=== PATIENT | male | born 1990 | race Caucasian/White ===

== ENCOUNTER 2016-06-07 01:44 | Emergency (ER) | payer OTHER ==
[~2016-06-07] VITALS: Ht 177.8 cm; Wt 76.7 kg
[~2016-06-07 01:44] MED LIST: ACET-1256 PO; AMPH30TA2 PO; IBUP-103 PO
[2016-06-07 01:50] VITALS: TEMP 36.7; Ht 177.8 cm; Wt 76.7 kg
[2016-06-07] MEDS ORDERED: AMOX875T PO (02:12)
[2016-06-07] MEDS ORDERED: SULF800T23 PO (02:12)
[2016-06-07] MEDS ORDERED: SEPTRA DS HOME PACK 1 EA VIAL PO ONE (02:15)
[2016-06-07] MEDS ORDERED: NORCO 5/325MG HOME PACK PO ONE (02:15)
[2016-06-07] MEDS ORDERED: AMOXICIL/CLAVU 875MG HOME PACK PO ONE (02:15)
[2016-06-07 02:21] VITALS: BP 124/81; PULSE 94; O2SAT 99
[2016-06-07] MEDS ORDERED: OXYC1TAB3 PO (19:42)
--- NOTE | 2016-06-07 23:21 | EMERGENCY ROOM VISIT NOTE ---
History First contact with patient: 01:58 Chief Complaint: SKIN PROBLEM Stated Complaint: CYST IN GENITAL AREA,THICK AND BUTT ARE History of Present Illness The patient is a 25 year old male who presents to the Emergency Room with complaints of worsening pain and discomfort in his pilonidal region as well as his left groin. The patient has a history of extensive pilonidal abscesses that have required surgical removal and intervention. The patient feeling this is returning. Additionally he has some tenderness of his left groin, and is concerned for other abscess. The patient does not have fever or chills. He rates his discomfort a 9/10. No abdominal pain or changes in bowels or urination. He does not have a history of inflammatory bowel disease. He has not taken anything [id number] for his discomfort. Laying flat on his back worsens his symptoms. Review of Systems More than 10 systems were reviewed and otherwise negative with the exception of history of present illness. Past Medical/Surgical History Medical Problems: (1) Asthma, Unspecified (2) Attn Defic Nonhyperact (3) Juv Osteochondrosis Leg (4) Pilonidal Cyst W Abscess (5) Tobacco Use Disorder Social History Smoking Status: Current Every Day Smoker Alcohol Use: occasionally Drug Use: none Marital Status: single Occupation Status: employed Current/Historical Medications Scheduled Amoxicillin & Pot Clavulanate (Augmentin 875-125 mg), 1 TAB PO BID Amphetamine-Dextroamphetamine 30MG (Adderall 30MG), 15 MG PO UD Sulfa/Trimethoprim (Bactrim Ds 800MG/160MG), 1 TAB PO BID Scheduled PRN Oxycodone Ir (Roxicodone Ir), 1-2 TAB PO Q4H PRN for Pain Allergies Coded Allergies: No Known Allergies (Unverified , NONE, 06/07/16) Physical Exam Vital Signs Date Time Temp Pulse Resp B/P Pulse Ox O2 Delivery O2 Flow Rate FiO2 06/07/16 02:21 94 18 124/81 99 06/07/16 01:50 36.7 101 18 117/77 97 Room Air Pain Rating (0-10): 4.0 Physical Exam VITALS: Vitals are noted on the nurse's note and reviewed by myself. Vital signs stable. GENERAL: Well-developed, well-nourished, white male, who is in no acute distress and resting comfortably. Patient is cooperative with the examination. HEAD: Normocephalic atraumatic. NECK: Supple without nuchal rigidity. No lymphadenopathy. No thyromegaly. Cervical spine is nontender. HEART: Regular rate and rhythm without murmurs gallops or rubs. LUNGS: Clear to auscultation bilaterally without wheezes, rales or rhonchi. No retractions or accessory muscle use. ABDOMEN: Positive normal bowel sounds x 4. Soft, nontender, without masses or organomegaly. No guarding or rebound tenderness. RECTAL: The patient is with surgical incision throughout the pilonidal region of the superior gluteal cleft. There is firmness and tenderness but no obvious abscess appreciated through this region. No significant ulceration or drainage noted throughout. Perirectal area is without significant findings. MUSCULOSKELETAL: No muscle atrophy, erythema, or edema noted. Full range of motion without joint tenderness in all extremities. SKIN: The skin was with induration and firmness in the left groin at the most proximal femur medially. This area measures approximately 4 x 2 cm in dimension. No fluctuance or drainage. Medical Decision & Procedures Medications Administered Medications (Trade) Dose Ordered Sig/Hayde Route Start Time Stop Time Status Last Admin Dose Admin Amoxicillin/ Clavulanate Potassium (Augmentin 875MG Home Pack) 1 homepack UD ONCE PO 06/07/16 02:15 06/07/16 02:16 DC 06/07/16 02:15 1 HOMEPACK Trimethoprim/ Sulfamethoxazole (Sulfameth/ Trimeth Ds 800/ 160MG Home Pack) 1 homepack UD ONCE PO 06/07/16 02:15 06/07/16 02:16 DC 06/07/16 02:15 1 HOMEPACK Acetaminophen/ Hydrocodone Bitart ([place] 5/325mg Home Pack) 1 homepack UD ONCE PO 06/07/16 02:15 06/07/16 02:16 DC 06/07/16 02:15 1 HOMEPACK ED Course Physical exam and history were performed. Nursing notes and EMR were reviewed. Patient appears to have an ongoing history of pilonidal disease. He has some worsening tenderness over the past one to 2 days. Additionally he appears to have a cellulitis in his left groin. The patient does not appear toxic and is afebrile here in the department. I discussed options of care with the patient and will start him on Augmentin and Bactrim. There was no drainage for culture. I will also give the patient home pack of Vicodin. The patient was asked to follow with his surgeon for further care and management. He was otherwise invited back to the ER with any new, worsening, or concerning symptoms. The chart was completed utilizing [employer] Speech Voice Recognition Software. Grammatical errors, random word insertions, pronoun errors, and incomplete sentences are an occasional consequence of this system due to software limitations, ambient noise, and hardware issues. Any formal questions or concerns about the content, text, or information contained within the body of this dictation should be directly addressed to the provider for clarification. . Medical Decision Differential diagnosis: Etiologies such as cellulitis, abscess, MRSA infection, DVT, necrotizing fasciitis, dermatitis, drug eruption, as well as others were entertained.. Impression Primary Impression: Cellulitis Departure Information Dispostion Home / Self-Care Condition GOOD Prescriptions Sulfa/Trimethoprim (Bactrim Ds 800MG/160MG) Tab 1 TAB PO BID for 9 Days, #18 TAB Prov: Drew Blanchard PA-C 06/07/16 Amoxicillin & Pot Clavulanate (Augmentin 875-125 mg) 1 Tab Tab 1 TAB PO BID for 9 Days, #18 TAB Prov: Drew Blanchard PA-C 06/07/16 Forms HOME CARE DOCUMENTATION FORM, IMPORTANT VISIT INFORMATION Patient Instructions My [facility] Additional Instructions You were seen and evaluated today on an emergency basis only. This is not a substitute for, or an effort to provide, complete comprehensive medical care. It is not possible to recognize and treat all injuries or illnesses in a single emergency department visit. For this reason it is recommended that you followup with your surgeon by phone on thursday to arrange for follow-up. Amoxicillin Clavulanate (Augmentin) 875mg: Take one pill twice daily for 10 total days for your infection. All antibiotics can cause diarrhea. If this occurs and you feel worse or it does not resolve in 1-2 days follow up with your doctor or return to the Emergency Department as this could be signs of serious underlying problems. Any medication can cause an allergic reaction, stop the pills immediately and return to the ER for rash, hives, breathing difficulties, or swelling. Trimethoprim-Sulfamethoxazole(Bactrim DS): Take one pill twice daily for 10 total days for your skin infection. All antibiotics can cause diarrhea. If this occurs and you feel worse or it does not resolve in 1-2 days follow up with your doctor or return to the Emergency Department as this could be signs of serious underlying problems. Any medication can cause an allergic reaction, stop the pills immediately and return to the ER for rash, hives, breathing difficulties, or swelling. [place] (hydrocodone/acetaminophen) 5/325 mg (homepack) every 6 hours as needed for worsening breakthrough pain. Do not drink or drive on [place]. This medication will likely make you tired. Do not take [place] and Tylenol at the same time as both contain acetaminophen. [place] may cause constipation. You may wish to take an [id number] stool softener like Colace if this occurs. You are welcome to return to the emergency department anytime with new, worsening, or concerning symptoms.
[2016-07-30] MEDS ORDERED: FLV1 PO (15:45)
[2016-07-30] MEDS ORDERED: NRN600 PO (15:45)
[2016-07-30] MEDS ORDERED: MULT-589 PO (15:45)
[2016-07-30] MEDS ORDERED: THM100 PO (15:45)
== END 2016-06-07 02:22 | disposition home or self-care (01) ==
LOC: C.EDB 01:46
DX: L03.314 Cellulitis of groin (principal); F98.8 Other specified behavioral and emotional disorders with onset usually occurring in childhood and adolescence; J45.909 Unspecified asthma, uncomplicated; F17.200 Nicotine dependence, unspecified, uncomplicated; Z98.890 Other specified postprocedural states; Z79.899 Other long term (current) drug therapy

== ENCOUNTER 2016-06-07 19:20 | Emergency (ER) | payer SELFPAY ==
[~2016-06-07] VITALS: Ht 177.8 cm; Wt 76.3 kg
[~2016-06-07 19:20] MED LIST changes: +AMOX875T PO; +SULF800T23 PO
[2016-06-07 19:24] VITALS: BP 122/82; PULSE 91; TEMP 37; O2SAT 94; Ht 177.8 cm; Wt 76.3 kg
[2016-06-07] MEDS ORDERED: OXYC1TAB3 PO (19:42)
[2016-06-07] MEDS ORDERED: MoRPHine SULFATE 4 MG/ML 1 ML CARP\\VIAL IV STA (19:43)
[2016-06-07] MEDS ORDERED: AMPICILLIN/SULBACTAM SOD INJ 3,000 MG in SODIUM CHLORIDE 0.9% 100ML 100 ML IV ONE (19:45)
--- NOTE | 2016-06-07 20:18 | EMERGENCY ROOM VISIT NOTE ---
History First contact with patient: 19:31 Chief Complaint: OTHER COMPLAINT Stated Complaint: REEVAULUATION History of Present Illness The patient is a 25 year old male who presents to the Emergency Room with complaints of no improvement and a groin infection. The patient reports that he was here last night for evaluation. He was provided home packs and prescriptions for Keflex and Bactrim DS. He also received a home pack for hydrocodone. He has run out of the hydrocodone, and complaining of pain rated a 9 out of 10. He denies any fevers or chills. The patient does report a long history of skin infections and abscesses. Review of Systems 10 system review was performed and was negative except for pertinent positives and negatives as indicated in history of present illness Past Medical/Surgical History Medical Problems: (1) Asthma, Unspecified (2) Attn Defic Nonhyperact (3) Juv Osteochondrosis Leg (4) Pilonidal Cyst W Abscess (5) Tobacco Use Disorder Family History Unremarkable Social History Smoking Status: Current Every Day Smoker Alcohol Use: occasionally Drug Use: none Marital Status: single Occupation Status: employed Current/Historical Medications Scheduled Amoxicillin & Pot Clavulanate (Augmentin 875-125 mg), 1 TAB PO BID Amphetamine-Dextroamphetamine 30MG (Adderall 30MG), 15 MG PO UD Sulfa/Trimethoprim (Bactrim Ds 800MG/160MG), 1 TAB PO BID Scheduled PRN Oxycodone Ir (Roxicodone Ir), 1-2 TAB PO Q4H PRN for Pain Allergies Coded Allergies: No Known Allergies (Unverified , NONE, 06/07/16) Physical Exam Vital Signs Date Time Temp Pulse Resp B/P Pulse Ox O2 Delivery O2 Flow Rate FiO2 06/07/16 19:24 37.0 91 18 122/82 94 Room Air Physical Exam CONSTITUTIONAL: Healthy and well nourished. Alert and oriented X 3 with positive affect. Patient does not appear acutely ill or toxic. HEENT: Normocephalic, atraumatic. Pupils equal, round and reactive. NECK: Full active range of motion without discomfort. RESPIRATORY: Clear to auscultation bilaterally with no wheezing, crackles, rhonchi or stridor. CARDIOVASCULAR: Regular rate and rhythm with no murmurs, rubs or gallops. GASTROINTESTINAL: Bowel sounds present in all quadrants. Abdomen is soft and nontender to palpation. GENITOURINARY: Examination shows notable erythema and thickening along bilateral regions of the lateral mid scrotum. There is no thickening of the scrotal wall. Areas of erythema are notably indurated without any evidence for fluctuance. LYMPHATICS: The patient does have left inguinal adenopathy. MUSCULOSKELETAL: Full range of motion of all joints without discomfort. INTEGUMENTARY: No rash or other significant dermatologic conditions noted. NEUROLOGIC: No focal neurologic deficits noted. Medical Decision & Procedures Medications Administered Medications (Trade) Dose Ordered Sig/Hayde Route Start Time Stop Time Status Last Admin Dose Admin Ampicillin Sodium/ Sulbactam Sodium/ Sodium Chloride (Unasyn Inj/Nss 100ml) 108 ml @ 200 mls/hr ONE ONCE IV 06/07/16 19:45 06/07/16 20:17 DC 06/07/16 20:05 200 MLS/HR Morphine Sulfate (MoRPHine SULFATE INJ) 4 mg NOW STAT IV 06/07/16 19:43 06/07/16 19:45 DC 06/07/16 19:50 4 MG Procedure IV medications: The patient received morphine 4 mg IVP and Unasyn 3 g IV infusion ED Course Patient history and physical exam were performed. Nurse's notes were reviewed. Vital signs were reviewed and were normal without any tachycardia or fever. The patient's prior ED visit notes were not completed on review. Reports that I &D was not attempted. Based on physical exam today, I am in agreement that I&D would not be productive since the tissue is only indurated without obvious evidence for abscess. I did suggest some IV antibiotics, and the patient was in agreement. IV access was established. The patient received Unasyn 3 g IV infusion, along with morphine 4 mg IVP. The patient was provided a prescription for OxyIR 5 mg, dispensed #24 with no refills. No drinking or driving while taking this medication. He was instructed to continue and complete all antibiotics as per sleep prescribed. I did suggest that he follow-up with his PCP in the next 48 hours for recheck, returning to the emergency department if he is unable to establish this appointment, or if he has progressively worsening pain, swelling or developing fever. The patient voiced understanding of all discharge instructions, and rated his discomfort a 3 out of 10 at the time of discharge. Medical Decision Impression Primary Impression: Cellulitis of groin Departure Information Dispostion Home / Self-Care Prescriptions Oxycodone Ir (Roxicodone Ir) 5 Mg Tab 1-2 TAB PO Q4H Y for Pain, #24 TAB For Initial Treatment Prov: Varun Burleson PA 06/07/16 Forms HOME CARE DOCUMENTATION FORM, IMPORTANT VISIT INFORMATION Patient Instructions My [facility] Additional Instructions Continuing complete your Keflex and Bactrim DS antibiotics as prescribed. Intermittently apply warm moist compresses to the area. Ibuprofen 800 mg and/or Tylenol 1000 mg every 8 hours. You may also alternate these medications for more effective pain relief: Ibuprofen --4 HRS--> Tylenol --4 HRS--> ibuprofen --4 HRS--> Tylenol .... OxyIR if needed for worse pain. Do not drink or drive while taking OxyIR. Return to the emergency department for recheck in 48 hours if there is no improvement in your infection. Return for significantly worsening swelling or developing fever.
[2016-06-07] MEDS ORDERED: CEPHALEXIN 500MG HOME PACK 1 EA BTL PO ONE (20:30)
[2016-06-07] MEDS ORDERED: SEPTRA DS HOME PACK 1 EA VIAL PO ONE (20:30)
[2016-06-07] MEDS ORDERED: OXYCODONE IR HOME PACK PO ONE (20:30)
[2016-07-30] MEDS ORDERED: MULT-589 PO (15:45)
[2016-07-30] MEDS ORDERED: THM100 PO (15:45)
[2016-07-30] MEDS ORDERED: NRN600 PO (15:45)
[2016-07-30] MEDS ORDERED: FLV1 PO (15:45)
== END 2016-06-07 20:52 | disposition home or self-care (01) ==
LOC: C.EDB 19:22 → C.EDD 20:52
DX: L03.314 Cellulitis of groin (principal); J45.909 Unspecified asthma, uncomplicated; F98.8 Other specified behavioral and emotional disorders with onset usually occurring in childhood and adolescence; F17.200 Nicotine dependence, unspecified, uncomplicated; Z79.899 Other long term (current) drug therapy

== ENCOUNTER 2016-07-27 16:40 | Emergency (ER) | payer OTHER ==
[~2016-07-27] VITALS: Ht 177.8 cm; Wt 72.9 kg
[~2016-07-27 16:40] MED LIST changes: -ACET-1256 PO; -AMOX875T PO; -IBUP-103 PO; +OXYC1TAB3 PO; -SULF800T23 PO
[2016-07-27 16:44] VITALS: TEMP 36.6; Ht 177.8 cm; Wt 72.9 kg
[2016-07-27] MEDS ORDERED: LORAZEPAM 2 MG/ML 1 ML VIAL IV STA (16:59)
[2016-07-27] MEDS ORDERED: SODIUM CHLORIDE 0.9% 1000ML 1,000 ML IV STA (16:59)
[2016-07-27] MEDS ORDERED: ONDANSETRON INJ 2 MG/ML 2 ML VIAL IV STA (17:07)
[2016-07-27] MEDS ORDERED: VNTHFA/IN IN (17:18)
[2016-07-27 17:25] LABS: BASO % 0.6 %; BASO ABS # 0.06 K/uL (0-0.2); COMPLETE YES; EOS % 0.1 %; IG% 0.1 %; LYMPH % 15.2 %; LYMPH ABS # 1.42 K/uL (1.2-3.4); MEAN CELL VOLUME 95.6 fL (80-100); MEAN CORPUSCULAR HEMOGLOBIN 34.7 pg (25-34); MEAN CORPUSCULAR HGB CONC 36.3 g/dl (32-36); MEAN PLATELET VOLUME 9.4 fL (7.4-10.4); MONO % 8.9 %; NEUT % 75.1 %; PLATELET COUNT 252 K/uL (130-400); RED BLOOD COUNT 4.81 M/uL (4.7-6.1); WHITE BLOOD COUNT 9.36 K/uL (4.8-10.8)
--- NOTE | 2016-07-27 17:29 | EMERGENCY ROOM VISIT NOTE ---
History Report prepared by Ana: Nathalie Cardoso Under the Supervision of: Dr. Eloisa Green D.O. First contact with patient: 16:47 Chief Complaint: VOMITING Stated Complaint: VOMITING,DIZZY,ETC History of Present Illness The patient is a 25 year old male who presents to the Emergency Room with complaints of worsening nausea since yesterday. He also had decreased appetite yesterday. This morning around 11pm (5.5 hours PRESSER FIRST) the patient developed vomiting. This has worsened throughout the day and he has been unable to keep anything down. He is shaking and feels dizzy. He notes some epigastric soreness that he thinks is due to dry heaving. The patient denies any other abdominal pain or any pain radiating into his back. He also denies any hematemesis. He notes that he typically drinks 4-5 alcoholic beverages every day. He has been drinking regularly for a couple of years. He does not typically feel shaky in the mornings when he wakes up. The patient is trying to quit drinking and states that he tried to drink 3 shots today but vomited them up. He has tried to get sober in the past. He notes occasional marijuana use, but denies any other drugs or substances. No recent trauma, no travel, no new meds. Takes ADHD med. No known sick contact, no new foods. Source of History: patient Onset: yesterday Position: abdomen Quality: other (nausea) Timing: worsening Modifying Factors (Worsening): drinking Associated Symptoms: + abdominal pain, + vomiting Note: Pt feels shaky and dizzy. Pt denies hematemesis. Review of Systems See HPI for pertinent positives & negatives. A total of 10 systems reviewed and were otherwise negative. Past Medical & Surgical Medical Problems: (1) Asthma, Unspecified (2) Attn Defic Nonhyperact (3) Juv Osteochondrosis Leg (4) Pilonidal Cyst W Abscess (5) Tobacco Use Disorder Family History No pertinent history stated. Social History Smoking Status: Current Every Day Smoker Alcohol Use: heavy Drug Use: marijuana Marital Status: single Occupation Status: employed Current/Historical Medications Scheduled PRN Albuterol Hfa (Ventolin Hfa), 2 PUFF IN QID PRN for SOB/Wheezing Amphetamine-Dextroamphetamine 30MG (Adderall 30MG), 15 MG PO UD PRN for Diazepam (Valium), 5 MG PO Q6H PRN for alcohol withdrawal Allergies Coded Allergies: No Known Allergies (Unverified , NONE, 06/07/16) Physical Exam Vital Signs Date Time Temp Pulse Resp B/P Pulse Ox O2 Delivery O2 Flow Rate FiO2 07/27/16 20:45 95 18 142/87 07/27/16 17:41 96 20 136/84 96 07/27/16 16:44 36.6 122 20 145/89 96 Room Air Physical Exam GENERAL: alert, pale appearing, tremulous, well nourished, no distress, non- toxic EYE EXAM: normal conjunctiva, PERRL and EOM's grossly intact OROPHARYNX: no exudate, no erythema, lips, buccal mucosa, and tongue normal and mucous membranes are dry NECK: supple, no nuchal rigidity, no adenopathy, non-tender LUNGS: Clear to auscultation. Normal chest wall mechanics HEART: no murmurs, S1 normal and S2 normal ABDOMEN: abdomen soft, non-tender, normo-active bowel sounds, no masses, no rebound or guarding. BACK: Back is symmetrical on inspection and there is no deformity, no midline tenderness, no CVA tenderness. SKIN: Diaphoretic, no rashes and no bruising UPPER EXTREMITIES: upper extremities are grossly normal. LOWER EXTREMITIES: No pitting edema. NEURO EXAM: Normal sensorium, cranial nerves II-XII grossly intact, normal speech, no gross weakness of arms, no gross weakness of legs. Medical Decision & Procedures ER Provider Diagnostic Interpretation: Radiology results have been interpreted by the radiologist and reviewed by me. CHEST AND ABDOMEN 2 VIEWS HISTORY: epigastric pain, vomiting COMPARISON: FINDINGS: The lungs are clear. The cardiomediastinal silhouette is within normal limits. There is no pneumoperitoneum or pneumatosis. The bowel gas pattern is unremarkable. No evidence for bowel obstruction. No renal or ureteral calculi. Calcifications in the deep pelvis favor phleboliths. Right upper quadrant calcification is likely associated with the adrenal gland. IMPRESSION: No acute cardiopulmonary process. No evidence for bowel obstruction. Electronically signed by: Patrick Goodson M.D. 07/27/2016 6:07 PM Dictated Date/Time: 07/27/2016 6:05 PM Laboratory Results 07/27/16 17:14 Red Blood Count 4.81, Mean Corpuscular Volume 95.6, Mean Corpuscular Hemoglobin 34.7, Mean Corpuscular Hemoglobin Concent 36.3, Mean Platelet Volume 9.4, Neutrophils (%) (Auto) 75.1, Lymphocytes (%) (Auto) 15.2, Monocytes (%) (Auto) 8.9, Eosinophils (%) (Auto) 0.1, Basophils (%) (Auto) 0.6, Neutrophils # (Auto) 7.03, Lymphocytes # (Auto) 1.42, Monocytes # (Auto) 0.83, Eosinophils # (Auto) 0.01, Basophils # (Auto) 0.06 07/27/16 17:14 Test 07/27/16 17:14 07/27/16 17:20 White Blood Count 9.36 K/uL (4.8-10.8) Red Blood Count 4.81 M/uL (4.7-6.1) Hemoglobin 16.7 g/dL (14.0-18.0) Hematocrit 46.0 % (42-52) Mean Corpuscular Volume 95.6 fL (80-100) Mean Corpuscular Hemoglobin 34.7 pg (25-34) Mean Corpuscular Hemoglobin Concent 36.3 g/dl (32-36) Platelet Count 252 K/uL (130-400) Mean Platelet Volume 9.4 fL (7.4-10.4) Neutrophils (%) (Auto) 75.1 % Lymphocytes (%) (Auto) 15.2 % Monocytes (%) (Auto) 8.9 % Eosinophils (%) (Auto) 0.1 % Basophils (%) (Auto) 0.6 % Neutrophils # (Auto) 7.03 K/uL (1.4-6.5) Lymphocytes # (Auto) 1.42 K/uL (1.2-3.4) Monocytes # (Auto) 0.83 K/uL (0.11-0.59) Eosinophils # (Auto) 0.01 K/uL (0-0.5) Basophils # (Auto) 0.06 K/uL (0-0.2) RDW Standard Deviation 49.6 fL (36.4-46.3) RDW Coefficient of Variation 14.0 % (11.5-14.5) Immature Granulocyte % (Auto) 0.1 % Immature Granulocyte # (Auto) 0.01 K/uL (0.00-0.02) Anion Gap 19.0 mmol/L (3-11) Est Creatinine Clear Calc Drug Dose 107.7 ml/min Estimated GFR () 109.1 Estimated GFR (Non- 94.1 BUN/Creatinine Ratio 16.2 (10-20) Calcium Level 8.4 mg/dl (8.5-10.1) Magnesium Level 1.8 mg/dl (1.8-2.4) Total Bilirubin 0.8 mg/dl (0.2-1) Aspartate Amino Transf (AST/SGOT) 241 U/L (15-37) Alanine Aminotransferase (ALT/SGPT) 74 U/L (12-78) Alkaline Phosphatase 112 U/L (45-117) Total Protein 7.6 gm/dl (6.4-8.2) Albumin 4.2 gm/dl (3.4-5.0) Globulin 3.4 gm/dl (2.5-4.0) Albumin/Globulin Ratio 1.2 (0.9-2) Lipase 135 U/L (73-393) Ethyl Alcohol mg/dL 45.0 mg/dl (0-3) Urine Opiates Screen NEG (NEG) Urine Methadone, Qualitative NEG (NEG) Urine Barbiturates NEG (NEG) Urine Phencyclidine (PCP) Level NEG (NEG) Ur Amphetamine/Methamphetamine POS (NEG) MDMA (Ecstasy) Screen NEG (NEG) Urine Benzodiazepines Screen NEG (NEG) Urine Cocaine Metabolite NEG (NEG) Urine Marijuana (THC) POS (NEG) Laboratory results per my review. Medications Administered Medications (Trade) Dose Ordered Sig/Hayde Route Start Time Stop Time Status Last Admin Dose Admin Sodium Chloride (Nss 1000ml) 1,000 ml @ 999 mls/hr Q1H1M STAT IV 07/27/16 16:59 07/27/16 17:59 DC 07/27/16 17:26 999 MLS/HR Lorazepam (Ativan Inj) 1 mg NOW STAT IV 07/27/16 16:59 07/27/16 17:02 DC 07/27/16 17:27 1 MG Ondansetron HCl 4 mg 4 mg NOW STAT IV 07/27/16 17:07 07/27/16 17:09 DC 07/27/16 17:27 4 MG Pantoprazole Sodium/Syringe (Protonix Inj/ Syringe) 10 ml @ 5 mls/min NOW ONCE IV 07/27/16 19:00 07/27/16 19:01 DC 07/27/16 19:22 5 MLS/MIN Thiamine HCl (Vitamin B-1 Tab) 100 mg NOW STAT PO 07/27/16 18:47 07/27/16 18:49 DC 07/27/16 19:02 100 MG Folic Acid (Folvite Tab) 1 mg NOW STAT PO 07/27/16 18:47 07/27/16 18:49 DC 07/27/16 19:01 1 MG Diazepam (Valium Tab) 2.5 mg NOW STAT PO 07/27/16 19:30 07/27/16 19:32 DC 07/27/16 19:48 2.5 MG Diazepam (Valium Tab) 2.5 mg NOW STAT PO 07/27/16 20:48 07/27/16 20:49 DC 07/27/16 20:53 2.5 MG ECG Indication: vomiting Rate (beats per minute): 77 Rhythm: normal sinus Findings: no ectopy, other (Normal axis; Slightly biphasic appearance to T- wave in V2 otherwise no acute ischemia) ED Course 1646: The patient was evaluated in room A4B. A complete history and physical exam was performed. 165: Lorazepam 1 mg IV, NSS 1000 ml @ 999 mls/hr IV 1707: Zofran 4 mg IV 184: I reassessed the patient at this time. He is feeling better and would like to try drinking fluids. 7: Folic Acid 1 mg PO, Thiamine HCl 100 mg PO 0: Pantoprazole Sodium 40 mg IV 1922: I reassessed the patient. He is tolerating PO. He is going to speak with the immigration case worker about alcohol resources. 1929: Diazepam 2.5 mg PO 2018: I reassessed the patient at this time. He is feeling better and resting comfortably. I discussed the results and treatment plan with the patient. I answered all pertaining questions that he had. He expressed understanding and verbalized agreement. The patient will be discharged home. Medical Decision Differential diagnosis: Etiologies such as gastroenteritis, food borne illness, infections, perforation , AAA, dissection, appendicitis, diverticulitis, inflammatory bowel disease, obstruction, GI bleed, biliary pathology, as well as others were entertained. Patient markedly improved here following Ativan and IV fluids. Given otherwise reassuring labs and imaging and improvement with benzodiazepines, more likely patient's symptoms related to alcohol withdrawal. Patient seen by psychiatric immigration case worker and discussed resources for sobriety. Patient is not interested in inpatient alcohol rehabilitation or detox. Discussed with patient need for follow-up with family doctor, symptoms to watch and return for, use of Valium taper to help control symptoms, complications of alcohol abuse and risks associated with alcohol withdrawal, he verbalized understanding of all this was agreeable with plan. No evidence of bacteremia/sepsis, no evidence of delirium tremens, vital signs stable throughout. Doubt foodborne illness, no history to suggest trauma. Doubt occult GI pathology not evident from labs and x-rays at this time. Patient with a steady gait, no tremors or diaphoresis at time of discharge, was tolerating by mouth prior to discharge. Impression Primary Impression: Vomiting Additional Impressions: Alcohol withdrawal Abnormal LFTs (liver function tests) Scribe Attestation The scribe's documentation has been prepared under my direction and personally reviewed by me in its entirety. I confirm that the note above accurately reflects all work, treatment, procedures, and medical decision making performed by me. Departure Information Dispostion Home / Self-Care Prescriptions Diazepam (Valium) 5 Mg Tab 5 MG PO Q6H Y for alcohol withdrawal, #14 TAB Prov: Eloisa Green, 07/27/16 Referrals No Doctor, Assigned (PCP) Forms HOME CARE DOCUMENTATION FORM, IMPORTANT VISIT INFORMATION Patient Instructions My [facility] Additional Instructions You may use the additional medication as provided. Please do not take it and drive. Do not take more than as prescribed. Please stop drinking alcohol. Long-term use of alcohol or heavy use of alcohol, result in health complications , incarceration, and even . Problem Qualifiers Primary Impression: Vomiting Vomiting type: unspecified Vomiting Intractability: non-intractable Nausea presence: with nausea Qualified Codes: R11.2 - Nausea with vomiting, unspecified Additional Impressions: Alcohol withdrawal Complication of substance-induced condition: uncomplicated Qualified Codes: F10.230 - Alcohol dependence with withdrawal, uncomplicated
[2016-07-27 17:41] VITALS: O2SAT 96
[2016-07-27 17:46] LABS: BUN/CREATININE RATIO 16.2 (10-20); CALCIUM 8.4 mg/dl (8.5-10.1); CREATININE 1.1 mg/dl (0.60-1.40); MAGNESIUM 1.8 mg/dl (1.8-2.4); POTASSIUM 3.4 mmol/L (3.5-5.1)
[2016-07-27 17:49] LABS: ALB/GLOB RATIO 1.2 (0.9-2)
[2016-07-27 18:00] LABS: BENZODIAZEPINE, URINE NEG (NEG); COCAINE,URINE NEG (NEG); PHENCYCLIDINE, URINE NEG (NEG)
--- NOTE | 2016-07-27 18:08 | DIAGNOSTIC IMAGING REPORT ---
CHEST AND ABDOMEN 2 VIEWS HISTORY: epigastric pain, vomiting COMPARISON: FINDINGS: The lungs are clear. The cardiomediastinal silhouette is within normal limits. There is no pneumoperitoneum or pneumatosis. The bowel gas pattern is unremarkable. No evidence for bowel obstruction. No renal or ureteral calculi. Calcifications in the deep pelvis favor phleboliths. Right upper quadrant calcification is likely associated with the adrenal gland. IMPRESSION: No acute cardiopulmonary process. No evidence for bowel obstruction. Electronically signed by: Patrick Goodson M.D. 07/27/2016 6:07 PM Dictated Date/Time: 07/27/2016 6:05 PM
[2016-07-27] MEDS ORDERED: THIAMINE HCL 100 MG TAB PO STA (18:47)
[2016-07-27] MEDS ORDERED: PANTOprazole INJ 40 MG in SYRINGE 0 ML IV ONE (19:00)
[2016-07-27] MEDS ORDERED: DIAZEPAM 5MG TAB PO STA ×2 (19:30→20:48)
[2016-07-27] MEDS ORDERED: DIAZ-165 PO (19:45)
[2016-07-27 20:45] VITALS: BP 142/87; PULSE 95
[2016-07-30] MEDS ORDERED: FLV1 PO (15:45)
[2016-07-30] MEDS ORDERED: THM100 PO (15:45)
[2016-07-30] MEDS ORDERED: MULT-589 PO (15:45)
[2016-07-30] MEDS ORDERED: NRN600 PO (15:45)
== END 2016-07-27 20:47 | disposition home or self-care (01) ==
LOC: C.EDB 16:41 → C.EDA 20:47
DX: R11.2 Nausea with vomiting, unspecified (principal); F10.230 Alcohol dependence with withdrawal, uncomplicated; R94.5 Abnormal results of liver function studies; F12.90 Cannabis use, unspecified, uncomplicated; J45.909 Unspecified asthma, uncomplicated; F98.8 Other specified behavioral and emotional disorders with onset usually occurring in childhood and adolescence; F17.200 Nicotine dependence, unspecified, uncomplicated

== ENCOUNTER 2016-07-29 13:38 | Inpatient (IN) | payer OTHER ==
[~2016-07-29] VITALS: Ht 177.8 cm; Wt 76.2 kg
[~2016-07-29 13:38] MED LIST changes: +DIAZ-165 PO; -OXYC1TAB3 PO; +VNTHFA/IN IN
[2016-07-29] MEDS ORDERED: LORAZEPAM 2 MG/ML 1 ML VIAL IV STA (13:46)
[2016-07-29] MEDS ORDERED: SODIUM CHLORIDE 0.9% 1000ML 500 ML IV STA (13:46)
[2016-07-29] MEDS ORDERED: ONDANSETRON INJ 2 MG/ML 2 ML VIAL IV STA (13:46)
--- NOTE | 2016-07-29 13:58 | EMERGENCY ROOM VISIT NOTE ---
History Report prepared by Ana: Nikia Melendez Under the Supervision of: Dr. Asa Kevin M.D. 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 The nursing staff reports that the patient is currently detoxing from alcohol. Earlier today, he fell and hit his head. He had a seizure after falling. He lost consciousness for 10-20 seconds. They report that he had no post ictal phase. He denies any tongue bite or urinary incontinence. He has a history of seizure previously from head trauma. He is currently detoxing on his own. His last drink was 3 days ago. He regularly drank 4-6 drinks a day. He reports feeling jittery. He has tried detoxing before without success. He was seen in the ED 2 days ago for alcohol withdrawal. 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 Pt denies tongue bite, urinary incontinence. Review of Systems See HPI for pertinent positives & negatives. A total of 10 systems reviewed and were otherwise negative. Past Medical & Surgical Medical Problems: (1) Asthma, Unspecified (2) Attn Defic Nonhyperact (3) Juv Osteochondrosis Leg (4) Pilonidal Cyst W Abscess (5) Tobacco Use Disorder Family History No pertinent family history stated. Social History Smoking Status: Current Every Day Smoker Alcohol Use: heavy Drug Use: marijuana Marital Status: single Occupation Status: unemployed Current/Historical Medications Scheduled PRN Albuterol Hfa (Ventolin Hfa), 2 PUFF IN QID PRN for SOB/Wheezing Amphetamine-Dextroamphetamine 30MG (Adderall 30MG), 15 MG PO UD PRN for Diazepam (Valium), 5 MG PO Q6H PRN for alcohol withdrawal Allergies Coded Allergies: No Known Allergies (Unverified , NONE, 07/29/16) Physical Exam Vital Signs Date Time Temp Pulse Resp B/P Pulse Ox O2 Delivery O2 Flow Rate FiO2 07/29/16 14:30 132/89 07/29/16 14:08 97 19 96 07/29/16 14:08 97 18 141/91 98 Room Air 07/29/16 14:00 141/91 07/29/16 13:55 133/86 07/29/16 13:49 37.5 123 18 150/106 98 Room Air 07/29/16 13:45 100 07/29/16 13:44 150/106 Physical Exam GENERAL: Patient is in no acute distress. HEENT: 2-3 cm hematoma to the left temporal scalp with associated abrasion, no lacerations. Mucous membranes slightly dry. No other facial trauma noted. NECK: No stridor, no adenopathy, no meningismus, trachea is midline. LUNGS: Clear to auscultation bilaterally, no wheeze, no rhonchi, breath sounds equal. HEART: Without murmurs gallops or rubs, regular rate and rhythm. ABDOMEN: Soft, nontender, bowel sounds positive, no hernias, no peritonitis. EXTREMITIES: No cyanosis or edema, full range of motion of all the joints without pain or difficulty, no signs for acute trauma. NEUROLOGIC: Oriented x 3, no acute motor or sensory deficits, no focal weakness. GCS 15. SKIN: No rash, no jaundice, no diaphoresis. Medical Decision & Procedures ER Provider Diagnostic Interpretation: X-ray results as stated below per interpretation by me and the radiologist. Radiology results as stated below per my review and radiologist interpretation: CHEST ONE VIEW PORTABLE CLINICAL HISTORY: ALCOHOL OD dyspnea COMPARISON STUDY: 07/27/2016 FINDINGS: The bones soft tissues and hemidiaphragms are normal. The cardiomediastinal silhouette is normal. The lungs are clear. The pulmonary vasculature is normal. IMPRESSION: Negative chest. Electronically signed by: Dominik Locke M.D. 07/29/2016 3:11 PM Dictated Date/Time: 07/29/2016 3:[address] SCAN OF THE BRAIN WITHOUT IV CONTRAST CLINICAL HISTORY: Intoxication. Seizure. Head injury. COMPARISON STUDY: CT of the brain dated 12/01/2008. TECHNIQUE: Unenhanced axial CT scan of the brain is performed from the vertex to the skull base. Automated dose control exposure was utilized. CT DOSE: 537.48 mGy.cm FINDINGS: Brain parenchyma: The brain parenchyma is normal in appearance. There is no hemorrhage, mass effect, or evidence of acute territorial ischemia by CT criteria. Alcantar-white matter is preserved. No extra-axial fluid collection is seen. Ventricles, sulci, cisterns: Normal in configuration. Intracranial vasculature: The visualized intracranial vasculature at the skull base is normal in appearance. Calvarium: No depressed calvarial fracture is seen. Soft tissues: There is a left frontal scalp contusion. Sinuses and mastoids: The visualized paranasal sinuses are clear. The mastoid air cells are well pneumatized. Orbits: The bony orbits are grossly intact. IMPRESSION: 1. No acute intracranial abnormality. 2. Left frontal scalp contusion. Electronically signed by: Asa Wayne M.D. 07/29/2016 3:07 PM Dictated Date/Time: 07/29/2016 3:04 PM Laboratory Results 07/29/16 14:01 Red Blood Count 4.22, Mean Corpuscular Volume 97.6, Mean Corpuscular Hemoglobin 33.9, Mean Corpuscular Hemoglobin Concent 34.7, Mean Platelet Volume 9.6, Neutrophils (%) (Auto) 72.0, Lymphocytes (%) (Auto) 18.5, Monocytes (%) (Auto) 6.8, Eosinophils (%) (Auto) 2.3, Basophils (%) (Auto) 0.2, Neutrophils # (Auto) 3.51, Lymphocytes # (Auto) 0.90, Monocytes # (Auto) 0.33, Eosinophils # (Auto) 0.11, Basophils # (Auto) 0.01 07/29/16 14:01 Test 07/29/16 13:46 07/29/16 14:01 White Blood Count 4.87 K/uL (4.8-10.8) Red Blood Count 4.22 M/uL (4.7-6.1) Hemoglobin 14.3 g/dL (14.0-18.0) Hematocrit 41.2 % (42-52) Mean Corpuscular Volume 97.6 fL (80-100) Mean Corpuscular Hemoglobin 33.9 pg (25-34) Mean Corpuscular Hemoglobin Concent 34.7 g/dl (32-36) Platelet Count 149 K/uL (130-400) Mean Platelet Volume 9.6 fL (7.4-10.4) Neutrophils (%) (Auto) 72.0 % Lymphocytes (%) (Auto) 18.5 % Monocytes (%) (Auto) 6.8 % Eosinophils (%) (Auto) 2.3 % Basophils (%) (Auto) 0.2 % Neutrophils # (Auto) 3.51 K/uL (1.4-6.5) Lymphocytes # (Auto) 0.90 K/uL (1.2-3.4) Monocytes # (Auto) 0.33 K/uL (0.11-0.59) Eosinophils # (Auto) 0.11 K/uL (0-0.5) Basophils # (Auto) 0.01 K/uL (0-0.2) RDW Standard Deviation 49.1 fL (36.4-46.3) RDW Coefficient of Variation 13.7 % (11.5-14.5) Immature Granulocyte % (Auto) 0.2 % Immature Granulocyte # (Auto) 0.01 K/uL (0.00-0.02) Prothrombin Time 10.7 SECONDS (9.0-12.0) Prothromb Time International Ratio 1.0 (0.9-1.1) Activated Partial Thromboplast Time 24.7 SECONDS (21.0-31.0) Partial Thromboplastin Ratio 1.0 Anion Gap 8.0 mmol/L (3-11) Est Creatinine Clear Calc Drug Dose 124.5 ml/min Estimated GFR () 127.0 Estimated GFR (Non- 109.6 BUN/Creatinine Ratio 9.1 (10-20) Calcium Level 8.5 mg/dl (8.5-10.1) Magnesium Level 2.1 mg/dl (1.8-2.4) Total Bilirubin 0.9 mg/dl (0.2-1) Direct Bilirubin 0.3 mg/dl (0-0.2) Aspartate Amino Transf (AST/SGOT) 164 U/L (15-37) Alanine Aminotransferase (ALT/SGPT) 66 U/L (12-78) Alkaline Phosphatase 88 U/L (45-117) Total Protein 7.0 gm/dl (6.4-8.2) Albumin 3.6 gm/dl (3.4-5.0) Thyroid Stimulating Hormone (TSH) 0.939 uIu/ml (0.300-4.500) Ethyl Alcohol mg/dL < 3.0 mg/dl (0-3) Laboratory results reviewed by me. Medications Administered Medications (Trade) Dose Ordered Sig/Hayde Route Start Time Stop Time Status Last Admin Dose Admin Sodium Chloride (Nss 1000ml) 500 ml @ 999 mls/hr Q31M STAT IV 07/29/16 13:46 07/29/16 14:16 DC 07/29/16 14:04 999 MLS/HR Ondansetron HCl (Zofran Inj) 4 mg NOW STAT IV 07/29/16 13:46 07/29/16 13:49 DC 07/29/16 14:02 4 MG Lorazepam 2 mg 2 mg NOW STAT IV 07/29/16 13:46 07/29/16 13:49 DC 07/29/16 14:02 2 MG Multivitamins/ Thiamine HCl/ Folic Acid/Sodium Chloride (Mvi Infusion Inj/Vitamin B-1 Inj/Folvite Inj/ Nss 1000ml) 1,011.2 ml @ 500 mls/ hr Q2H2M ONCE IV 07/29/16 14:00 07/29/16 16:01 DC 07/29/16 14:34 500 MLS/HR ECG Indication: other (seizure) Rate (beats per minute): 94 Rhythm: normal sinus Findings: no acute ischemic change, no ectopy ED Course 1342: The patient was evaluated in room C10. A complete history and physical exam was performed. 1346: Lorazepam 2 mg IV, Zofran Inj 4 mg IV, NSS 500 ml @ 999 mls/hr IV. 1400: Multivitamins 10 ml/Thiamine HCl 100 mg/Folic Acid 1 mg/Sodium Chloride 1011.2 ml @ 500 mls/hr IV. 1525: Upon reexamination the patient is resting comfortably. I discussed results and treatment plan with the patient. He verbalizes agreement and understanding. The patient will be evaluated for further management. 1539: I discussed the patient's case with Dr. Hull, [facility] hospitalist. He will evaluate the patient for further management. Medical Decision Differential diagnosis: drug/alcohol abuse, drug/alcohol withdrawal, seizure, intracranial bleeding, skull fracture, dehydration, electrolyte imbalance. There is no leukocytosis or concerning anemia. No significant electrolyte abnormality, no kidney failure. There was some mild liver enzyme elevations likely consistent with his alcohol abuse. Alcohol level is undetectable. Brain CT shows no acute bleed or mass effect. EKG shows a sinus rhythm, no acute ischemia. Chest x-ray does not show pneumonia, pneumothorax or mediastinal widening. Urine tox and urinalysis are presently pending. There was no coagulopathy. Patient appeared to be in a euthyroid state. Patient received IV saline, IV Ativan and IV Zofran. He was given IV saline with multivitamins, thiamine and folate. Patient has done well. He is more comfortable. He is resting easily. Given the alcohol withdrawal, given the possible seizure-like activity and the head trauma, admission/observation is warranted. I spoke to the patient and to the case picker. The on-call hospitalist was consulted. Consults Time Called: 1531 Consulting Physician: Dr. Hull [facility] hospitalist Returned Call: [phone] I discussed the patient's case with him. He will evaluate the patient for further management. Impression Primary Impression: Alcohol withdrawal Additional Impressions: Seizure Closed head injury Scribe Attestation The scribe's documentation has been prepared under my direction and personally reviewed by me in its entirety. I confirm that the note above accurately reflects all work, treatment, procedures, and medical decision making performed by me. Departure Information Dispostion Being Evaluated By Hospitalist Referrals No Doctor, Assigned (PCP) Patient Instructions My [facility] Problem Qualifiers
[2016-07-29] MEDS ORDERED: MULTI-VITAMIN INFUSION INJ 10 ML, THIAMINE HCL INJ 100 MG, FoLIC ACID INJ 1 MG in SODIU... IV ONE ×2 (14:00→16:15)
[2016-07-29 14:13] LABS: BASO % 0.2 %; BASO ABS # 0.01 K/uL (0-0.2); COMPLETE YES; EOS % 2.3 %; HEMATOCRIT 41.2 % (42-52); IG% 0.2 %; LYMPH % 18.5 %; MEAN CELL VOLUME 97.6 fL (80-100); MEAN CORPUSCULAR HEMOGLOBIN 33.9 pg (25-34); MEAN CORPUSCULAR HGB CONC 34.7 g/dl (32-36); MEAN PLATELET VOLUME 9.6 fL (7.4-10.4); MONO % 6.8 %; PLATELET COUNT 149 K/uL (130-400); RED BLOOD COUNT 4.22 M/uL (4.7-6.1); WHITE BLOOD COUNT 4.87 K/uL (4.8-10.8)
[2016-07-29 14:34] LABS: PROTHROMBIN TIME (PATIENT) 10.7 SECONDS (9.0-12.0)
[2016-07-29 14:59] LABS: BUN/CREATININE RATIO 9.1 (10-20); CALCIUM 8.5 mg/dl (8.5-10.1); CREATININE 0.97 mg/dl (0.60-1.40); MAGNESIUM 2.1 mg/dl (1.8-2.4); POTASSIUM 3.8 mmol/L (3.5-5.1); THYROID STIMULATING HORMONE 0.939 uIu/ml (0.300-4.500)
--- NOTE | 2016-07-29 15:08 | DIAGNOSTIC IMAGING REPORT ---
CT SCAN OF THE BRAIN WITHOUT IV CONTRAST CLINICAL HISTORY: Intoxication. Seizure. Head injury. COMPARISON STUDY: CT of the brain dated 12/01/2008. TECHNIQUE: Unenhanced axial CT scan of the brain is performed from the vertex to the skull base. Automated dose control exposure was utilized. CT DOSE: 537.48 mGy.cm FINDINGS: Brain parenchyma: The brain parenchyma is normal in appearance. There is no hemorrhage, mass effect, or evidence of acute territorial ischemia by CT criteria. Alcantar-white matter is preserved. No extra-axial fluid collection is seen. Ventricles, sulci, cisterns: Normal in configuration. Intracranial vasculature: The visualized intracranial vasculature at the skull base is normal in appearance. Calvarium: No depressed calvarial fracture is seen. Soft tissues: There is a left frontal scalp contusion. Sinuses and mastoids: The visualized paranasal sinuses are clear. The mastoid air cells are well pneumatized. Orbits: The bony orbits are grossly intact. IMPRESSION: 1. No acute intracranial abnormality. 2. Left frontal scalp contusion. Electronically signed by: Asa Wayne M.D. 07/29/2016 3:07 PM Dictated Date/Time: 07/29/2016 3:04 PM
--- NOTE | 2016-07-29 15:12 | DIAGNOSTIC IMAGING REPORT ---
CHEST ONE VIEW PORTABLE CLINICAL HISTORY: ALCOHOL OD dyspnea COMPARISON STUDY: 07/27/2016 FINDINGS: The bones soft tissues and hemidiaphragms are normal. The cardiomediastinal silhouette is normal. The lungs are clear. The pulmonary vasculature is normal. IMPRESSION: Negative chest. Electronically signed by: Dominik Locke M.D. 07/29/2016 3:11 PM Dictated Date/Time: 07/29/2016 3:11 PM
[2016-07-29] MEDS ORDERED: LORAZEPAM 1 MG TAB PO PRN (16:30)
[2016-07-29] MEDS ORDERED: LORAZEPAM INJ 1 MG in SYRINGE 0.5 ML IV PRN (16:30)
[2016-07-29] MEDS ORDERED: GABAPENTIN 600 MG TAB PO SCH (16:30)
[2016-07-29 18:15] VITALS: BP 140/91; PULSE 84; TEMP 36.5; O2SAT 99; Ht 177.8 cm; Wt 76.2 kg
[2016-07-29] MEDS: ACETAMINOPHEN 325 MG TAB PO PRN ×2 (18:17→23:27)
[2016-07-29] MEDS ORDERED: GABAPENTIN 1200MG LOADING DOSE PO SCH (18:30)
[2016-07-29] MEDS ORDERED: NICOTINE 14 MG/24 HR TDSY TD ONE (18:58)
[2016-07-29 19:12] LABS: URINE APPEARANCE CLEAR (CLEAR); URINE BILIRUBIN NEG (NEG); URINE COLOR YELLOW; URINE NITRITE NEG (NEG); UROBILINOGEN NEG (NEG)
[2016-07-29 19:17] LABS: MANUAL MICROSCOPIC REQUIRED? NO; REVIEW REQ? NO
[2016-07-29 19:37] LABS: BENZODIAZEPINE, URINE POS (NEG); COCAINE,URINE NEG (NEG); PHENCYCLIDINE, URINE NEG (NEG)
[2016-07-29 19:41] VITALS: BP 133/80; PULSE 84; TEMP 36.5; O2SAT 99
[2016-07-29 20:05] VITALS: O2SAT 99
--- NOTE | 2016-07-29 21:26 | History and Physical ---
History & Physical Date & Time of Service: July 29, 2016 at ~ 16:00 . Chief Complaint: Alcohol Withdrawal, Seizure Primary Care Physician: No Doctor, Assigned History of Present Illness Source: patient 25 YO male who is not followed by a PCP. No chronic medical problems. He had a seizure in high school associated with a head injury; did not require anticonvulsant therapy. Drinking about 6 alcoholic beverages for the past several years. Decided a few days ago that he should quit. Was seen in ED on 07/27/16 with nausea and tremors. Received thiamine, lorazepam, diazepam. Inpatient rehab discussed in ED, but patient opted to be discharged. Over the last 2 days he has abstained from alcohol. Experiencing worsening tremors and nausea. No hematemesis, melena, hematochezia. Today he had an episode of loss of consciousness with apparent generalized seizure activity witnessed by his mother. Loss of consciousness associated with fall and striking his head. No tongue biting or incontinence. . Past Medical/Surgical History Medical Problems: (1) ADHD (attention deficit hyperactivity disorder) Status: Chronic Surgical Problems: (1) Status post excision pilonidal cyst Status: Chronic . Family History hypertension dyslipidemia . Social History Smoking Status: Current Every Day Smoker Alcohol Use: heavy Drug Use: marijuana Marital Status: single Housing status: lives with family Occupational Status: unemployed Multi-Drug Resistant Organisms History of MDRO: No Allergies Coded Allergies: No Known Allergies (Unverified , NONE, 07/29/16) Home Medications Scheduled PRN Amphetamine-Dextroamphetamine 30MG (Adderall 30MG), 15 MG PO UD PRN for Diazepam (Valium), 5 MG PO Q6H PRN for alcohol withdrawal Review of Systems As noted above. . Physical Exam Vital Signs Date Time Temp Pulse Resp B/P Pulse Ox O2 Delivery O2 Flow Rate FiO2 07/29/16 20:05 99 Room Air 07/29/16 19:41 36.5 84 18 133/80 99 07/29/16 18:15 36.5 84 16 140/91 99 Room Air 07/29/16 17:49 114/76 07/29/16 16:31 78 18 128/99 97 Room Air 07/29/16 16:29 128/99 07/29/16 14:30 132/89 07/29/16 14:08 97 19 96 07/29/16 14:08 97 18 141/91 98 Room Air 07/29/16 14:00 141/91 07/29/16 13:55 133/86 07/29/16 13:49 37.5 123 18 150/106 98 Room Air 07/29/16 13:45 100 07/29/16 13:44 150/106 General Appearance: WD/WN, no apparent distress Head: + pertinent finding (contusion left yazdanism) Eyes: normal inspection, PERRL, EOMI, sclerae normal ENT: hearing grossly normal, pharynx normal Neck: supple, no adenopathy, thyroid normal, no JVD Respiratory/Chest: no respiratory distress, no accessory muscle use, + wheezing (diffuse mild) Cardiovascular: regular rate, rhythm, no edema, no gallop, no JVD, no murmur Abdomen/GI: normal bowel sounds, non tender, soft, no organomegaly Extremities/Musculoskelatal: normal inspection, no calf tenderness Neurologic/Psych: pc support specialist II-XII nml as tested (PERRL, EOMI, no facial palsy, no dysarthria or aphasia), no motor/sensory deficits (motor strength upper and lower extr 5/5), alert, normal mood/affect, normal reflexes (patellar DTR's 2/2) Skin: normal color, warm/dry, no rash Lymphatic: no adenopathy (cervical) Diagnostics Laboratory Results Results Past 24 Hours Test 07/29/16 00:00 07/29/16 14:01 Range/Units Urine Color YELLOW Urine Appearance CLEAR CLEAR Urine pH 8.0 4.5-7.5 Urine Specific [place] 1.010 1.000-1.030 Urine Protein NEG NEG Urine Glucose (UA) NEG NEG Urine Ketones NEG NEG Urine Occult Blood NEG NEG Urine Nitrite NEG NEG Urine Bilirubin NEG NEG Urine Urobilinogen NEG NEG Urine Leukocyte Esterase NEG NEG Urine Opiates Screen NEG NEG Urine Methadone, Qualitative NEG NEG Urine Barbiturates NEG NEG Urine Phencyclidine (PCP) Level NEG NEG Ur Amphetamine/Methamphetamine NEG NEG MDMA (Ecstasy) Screen NEG NEG Urine Benzodiazepines Screen POS NEG Urine Cocaine Metabolite NEG NEG Urine Marijuana (THC) POS NEG White Blood Count 4.87 4.8-10.8 K/uL Red Blood Count 4.22 4.7-6.1 M/uL Hemoglobin 14.3 14.0-18.0 g/dL Hematocrit 41.2 42-52 % Mean Corpuscular Volume 97.6 80-100 fL Mean Corpuscular Hemoglobin 33.9 25-34 pg Mean Corpuscular Hemoglobin Concent 34.7 32-36 g/dl Platelet Count 149 130-400 K/uL Mean Platelet Volume 9.6 7.4-10.4 fL Neutrophils (%) (Auto) 72.0 % Lymphocytes (%) (Auto) 18.5 % Monocytes (%) (Auto) 6.8 % Eosinophils (%) (Auto) 2.3 % Basophils (%) (Auto) 0.2 % Neutrophils # (Auto) 3.51 1.4-6.5 K/uL Lymphocytes # (Auto) 0.90 1.2-3.4 K/uL Monocytes # (Auto) 0.33 0.11-0.59 K/uL Eosinophils # (Auto) 0.11 0-0.5 K/uL Basophils # (Auto) 0.01 0-0.2 K/uL RDW Standard Deviation 49.1 36.4-46.3 fL RDW Coefficient of Variation 13.7 11.5-14.5 % Immature Granulocyte % (Auto) 0.2 % Immature Granulocyte # (Auto) 0.01 0.00-0.02 K/uL Prothrombin Time 10.7 9.0-12.0 SECONDS Prothromb Time International Ratio 1.0 0.9-1.1 Activated Partial Thromboplast Time 24.7 21.0-31.0 SECONDS Partial Thromboplastin Ratio 1.0 Sodium Level 140 136-145 mmol/L Potassium Level 3.8 3.5-5.1 mmol/L Chloride Level 105 98-107 mmol/L Carbon Dioxide Level 27 21-32 mmol/L Anion Gap 8.0 3-11 mmol/L Blood Urea Nitrogen 9 7-18 mg/dl Creatinine 0.97 0.60-1.40 mg/dl Est Creatinine Clear Calc Drug Dose 124.5 ml/min Estimated GFR () 127.0 Estimated GFR (Non- 109.6 BUN/Creatinine Ratio 9.1 10-20 Random Glucose 135 70-99 mg/dl Calcium Level 8.5 8.5-10.1 mg/dl Magnesium Level 2.1 1.8-2.4 mg/dl Total Bilirubin 0.9 0.2-1 mg/dl Direct Bilirubin 0.3 0-0.2 mg/dl Aspartate Amino Transf (AST/SGOT) 164 15-37 U/L Alanine Aminotransferase (ALT/SGPT) 66 12-78 U/L Alkaline Phosphatase 88 45-117 U/L Total Protein 7.0 6.4-8.2 gm/dl Albumin 3.6 3.4-5.0 gm/dl Thyroid Stimulating Hormone (TSH) 0.939 0.300-4.500 uIu/ml Ethyl Alcohol mg/dL < 3.0 0-3 mg/dl Diagnostic Radiology CT HEAD IMPRESSION: 1. No acute intracranial abnormality. 2. Left frontal scalp contusion. Electronically signed by: Asa Wayne M.D. 07/29/2016 3:07 PM Dictated Date/Time: 07/29/2016 3:04 PM CHEST X-RAY IMPRESSION: Negative chest. Electronically signed by: Dominik Locke M.D. 07/29/2016 3:11 PM Dictated Date/Time: 07/29/2016 3:11 PM . Impression Assessment and Plan ALCOHOL WITHDRAWAL Last consumption 3 days prior to admission. Received IV thiamine and multivitamins in ED. Manage with gabapentin / lorazepam per protocol. Daily thiamine, folate, MVI. Consult Case Management regarding rehab options. SEIZURE Apparent seizure, most likely alcohol withdrawal. Check EEG. Seizure precautions. Consult Neuro. ADHD Hold amphetamine-dextroamphetamine due to alcohol withdrawal + seizure. SMOKING Smoking cessation counseling. VTE PROPHYLAXIS Low-moderate risk for VTE. No anticoagulants due to head injury. SCD's. Ambulate. DISPOSITION To be determined. Establishment with PCP encouraged. . Advanced Directives Existing Living Will: No Existing Power of Indexer: No VTE Prophylaxis VTE Risk Assessment Done? Y/N: Yes Risk Level: Low Given or contraindicated: SCD's
[2016-07-29] MEDS: GABAPENTIN 600MG Q6H DOSE PO SCH (23:21)
[2016-07-29 23:52] VITALS: BP 122/74; PULSE 100; TEMP 36.2; O2SAT 98
[2016-07-30] MEDS ORDERED: LORAZEPAM 0.5 MG TAB PO STA (00:41)
[2016-07-30] MEDS ORDERED: LORAZEPAM 2 MG/ML 1 ML VIAL IV PRN (02:30)
[2016-07-30 03:56] VITALS: BP 124/84; PULSE 76; TEMP 36.6; O2SAT 98
[2016-07-30] MEDS: GABAPENTIN 600MG Q6H DOSE PO SCH (05:35)
[2016-07-30 05:54] LABS: HEMATOCRIT 40.6 % (42-52); MEAN CELL VOLUME 98.8 fL (80-100); MEAN CORPUSCULAR HEMOGLOBIN 33.3 pg (25-34); MEAN CORPUSCULAR HGB CONC 33.7 g/dl (32-36); MEAN PLATELET VOLUME 9.6 fL (7.4-10.4); PLATELET COUNT 153 K/uL (130-400); RED BLOOD COUNT 4.11 M/uL (4.7-6.1); WHITE BLOOD COUNT 5.72 K/uL (4.8-10.8)
[2016-07-30 06:27] LABS: BUN/CREATININE RATIO 6.6 (10-20); CREATININE 0.77 mg/dl (0.60-1.40); POTASSIUM 3.7 mmol/L (3.5-5.1)
[2016-07-30 06:30] LABS: ALB/GLOB RATIO 1.1 (0.9-2)
[2016-07-30 07:17] VITALS: BP 117/74; PULSE 81; TEMP 36.8; O2SAT 98
[2016-07-30] MEDS: ACETAMINOPHEN 325 MG TAB PO PRN ×2 (08:17→18:34)
[2016-07-30] MEDS ORDERED: MULTIVITAMIN TAB PO SCH (09:00)
[2016-07-30] MEDS ORDERED: NICOTINE 14 MG/24 HR TDSY TD SCH (09:00)
[2016-07-30] MEDS ORDERED: THIAMINE HCL 100 MG TAB PO SCH (09:00)
[2016-07-30 11:27] VITALS: BP 124/87; PULSE 81; TEMP 36.7; O2SAT 98
--- NOTE | 2016-07-30 12:08 | Progress Note ---
Internal Med Progress Note Date of Service: July 30, 2016. Provider Documentation: SUBJECTIVE: Patient is doing very well. AAOX3, having his lunch. Denies any tremors, jittery feeling, no pain, nausea, vomiting, abdominal pain, sweating, palpitations. Tele- NSR OBJECTIVE: Vital Signs-as noted below Exam: General-AAOX3, no tremors Eyes-No icterus Neck-Supple Lungs-AEBE, no wheezing, rales, rhonchi Heart-S1, S2 normal, no murmurs Extremities-No edema Lab data as noted below. Diagnostic Radiology CT HEAD IMPRESSION: 1. No acute intracranial abnormality. 2. Left frontal scalp contusion. Electronically signed by: Asa Wayne M.D. 07/29/2016 3:07 PM Dictated Date/Time: 07/29/2016 3:04 PM CHEST X-RAY IMPRESSION: Negative chest. ASSESSMENT & PLAN: Assessment and Plan ALCOHOL WITHDRAWAL : Last consumption 3 days prior to admission. Received IV thiamine and multivitamins in ED. -Manage with gabapentin / lorazepam per protocol. Not requiring Lorazepam -Daily thiamine, folate, MVI. -Counseling done--patient is very motivated to quit. Wants to go for AA options and no rehab. Has support from her mother, father who is also trying to quit alcohol. SEIZURE Apparent seizure, most likely alcohol withdrawal. -EEG done -Seizure precautions. -Consulted Neuro- awaiting inputs ADHD -Hold amphetamine-dextroamphetamine due to alcohol withdrawal + seizure. SMOKING Smoking cessation counseling. VTE PROPHYLAXIS Low-moderate risk for VTE. No anticoagulants due to head injury. SCD's. Ambulate. DISPOSITION Eager to be discharged and wants to go home today Establishment with PCP encouraged. . Vital Signs: Date Time Temp Pulse Resp B/P Pulse Ox O2 Delivery O2 Flow Rate FiO2 07/30/16 11:27 36.7 81 16 124/87 98 Room Air 07/30/16 08:00 Room Air 07/30/16 07:17 36.8 81 16 117/74 98 Room Air 07/30/16 04:00 Room Air 07/30/16 03:56 36.6 76 17 124/84 98 Room Air 07/30/16 00:01 Room Air 07/29/16 23:52 36.2 100 17 122/74 98 Room Air 07/29/16 20:05 99 Room Air 07/29/16 19:41 36.5 84 18 133/80 99 07/29/16 18:15 36.5 84 16 140/91 99 Room Air 07/29/16 17:49 114/76 07/29/16 16:31 78 18 128/99 97 Room Air 07/29/16 16:29 128/99 07/29/16 14:30 132/89 07/29/16 14:08 97 19 96 07/29/16 14:08 97 18 141/91 98 Room Air 07/29/16 14:00 141/91 07/29/16 13:55 133/86 07/29/16 13:49 37.5 123 18 150/106 98 Room Air 07/29/16 13:45 100 07/29/16 13:44 150/106 Lab Results: Results Past 24 Hours Test 07/29/16 14:01 07/30/16 05:26 Range/Units White Blood Count 4.87 5.72 4.8-10.8 K/uL Red Blood Count 4.22 4.11 4.7-6.1 M/uL Hemoglobin 14.3 13.7 14.0-18.0 g/dL Hematocrit 41.2 40.6 42-52 % Mean Corpuscular Volume 97.6 98.8 80-100 fL Mean Corpuscular Hemoglobin 33.9 33.3 25-34 pg Mean Corpuscular Hemoglobin Concent 34.7 33.7 32-36 g/dl Platelet Count 149 153 130-400 K/uL Mean Platelet Volume 9.6 9.6 7.4-10.4 fL Neutrophils (%) (Auto) 72.0 % Lymphocytes (%) (Auto) 18.5 % Monocytes (%) (Auto) 6.8 % Eosinophils (%) (Auto) 2.3 % Basophils (%) (Auto) 0.2 % Neutrophils # (Auto) 3.51 1.4-6.5 K/uL Lymphocytes # (Auto) 0.90 1.2-3.4 K/uL Monocytes # (Auto) 0.33 0.11-0.59 K/uL Eosinophils # (Auto) 0.11 0-0.5 K/uL Basophils # (Auto) 0.01 0-0.2 K/uL RDW Standard Deviation 49.1 49.4 36.4-46.3 fL RDW Coefficient of Variation 13.7 13.8 11.5-14.5 % Immature Granulocyte % (Auto) 0.2 % Immature Granulocyte # (Auto) 0.01 0.00-0.02 K/uL Prothrombin Time 10.7 9.0-12.0 SECONDS Prothromb Time International Ratio 1.0 0.9-1.1 Activated Partial Thromboplast Time 24.7 21.0-31.0 SECONDS Partial Thromboplastin Ratio 1.0 Sodium Level 140 143 136-145 mmol/L Potassium Level 3.8 3.7 3.5-5.1 mmol/L Chloride Level 105 110 98-107 mmol/L Carbon Dioxide Level 27 26 21-32 mmol/L Anion Gap 8.0 7.0 3-11 mmol/L Blood Urea Nitrogen 9 5 7-18 mg/dl Creatinine 0.97 0.77 0.60-1.40 mg/dl Est Creatinine Clear Calc Drug Dose 124.5 154.1 ml/min Estimated GFR () 127.0 148.2 Estimated GFR (Non- 109.6 127.9 BUN/Creatinine Ratio 9.1 6.6 10-20 Random Glucose 135 92 70-99 mg/dl Calcium Level 8.5 8.0 8.5-10.1 mg/dl Magnesium Level 2.1 1.8-2.4 mg/dl Total Bilirubin 0.9 0.6 0.2-1 mg/dl Direct Bilirubin 0.3 0-0.2 mg/dl Aspartate Amino Transf (AST/SGOT) 164 122 15-37 U/L Alanine Aminotransferase (ALT/SGPT) 66 62 12-78 U/L Alkaline Phosphatase 88 78 45-117 U/L Total Protein 7.0 6.3 6.4-8.2 gm/dl Albumin 3.6 3.3 3.4-5.0 gm/dl Thyroid Stimulating Hormone (TSH) 0.939 0.300-4.500 uIu/ml Ethyl Alcohol mg/dL < 3.0 0-3 mg/dl Globulin 3.0 2.5-4.0 gm/dl Albumin/Globulin Ratio 1.1 0.9-2
[2016-07-30] MEDS ORDERED: GABAPENTIN 600MG Q8H DOSE PO SCH (14:00)
--- NOTE | 2016-07-30 14:04 | ELECTROENCEPHALOGRAPH REPORT ---
REQUESTING PHYSICIAN: Dr. Luther Hull. ATTENDING: Dr. Sudha Lama. CLINICAL DIAGNOSIS: Alcohol withdrawal seizure with prior seizure during adolescence, possibly posttraumatic. ELECTROENCEPHALOGRAM DIAGNOSIS: Essentially normal during wakefulness. DESCRIPTION OF TRACING: This EEG was done as a bedside recording. Unfortunately, the video analysis program was dysfunctional and images of the patient movement and behavior were not available for review, but judging from the pattern on EEG there are very few muscle or movement artifacts and the tracing is of good technical quality. Photic stimulation was performed. Hyperventilation was not. Drowsiness and light sleep were not seen. Under these conditions, there is evidence for a normal background rhythm in the alpha range of up to 10 Hz of maximum frequency and 30 microvolts of maximum amplitude. This is maximum posterior head regions and bilaterally symmetrical. Polymorphic mid frequency theta activity is seen over all head regions without clear focal or regional predominance. Anterior head region maximum bilaterally symmetrical low voltage fast activity in the beta range is present. Photic stimulation provokes a modest driving response without a photomyogenic or photoparoxysmal component. At no time during the waking tracing is there evidence for potentially epileptogenic activity in the form of polyspike or spike wave bursts, focal sharp waves or focal spikes. INTERPRETATION: This EEG is essentially normal during wakefulness without evidence for focal or generalized encephalopathy and without evidence for potentially epileptogenic activity.
--- NOTE | 2016-07-30 14:23 | Neurology Consultation ---
Neurology Consultation Date of Consultation: July 30, 2016. Attending Physician: Pooja. Lama S Primary Care Physician: No Doctor, Assigned Reason for Consultation: suspected seizure History of Present Illness Source: patient Doc is a 25 year old male who PMH or 1 prior seizure post CHI when he was 17 yo and ADHD off medication x 1 month. He presented after a 72 hour history of withdrawal from EtOH. He states he usually drinks daily and at least 3-4 beers. His brother is at home currently with a withdrawal seizure and c diff. He was seen in the ED 4 days ago after he had uncontrollable shaking from EtOH withdrawal then he had the seizure and fall down 3 stairs, he does remember going into the garage and states he was confused after he woke on the couch with his neighbor and mom starring at him. He did have a head bump but didn't have incontinence or bite his tongue. He is a 1/2 ppd smoker of cigarettes, smokes marijuana at least a couple times every week end. His father has had seizures but he is not sure of the circumstances. denies CP, SOB, abdominal pain , weakness, numbness tingling, vision changes, N, V. He intends on going to AA meeting when he leaves the hospital. He has a tremor at baseline but he states much worse then usual. States years of Adderall use Past Medical/Surgical History Medical Problems: (1) Abnormal LFTs (liver function tests) Status: Acute (2) Alcohol withdrawal Status: Acute (3) Alcohol withdrawal Status: Acute (4) Cellulitis Status: Acute (5) Cellulitis of groin Status: Acute (6) Seizure Status: Acute (7) Vomiting Status: Acute Social History Smoking Status: Former smoker Alcohol Use: heavy Drug Use: marijuana Marital Status: single Occupation Status: unemployed Allergies Coded Allergies: No Known Allergies (Unverified , NONE, 07/29/16) Current Inpatient Medications Current Inpatient Medications Medications (Trade) Dose Ordered Sig/Hayde Route Start Time Stop Time Status Last Admin Dose Admin Acetaminophen (Tylenol Tab) 650 mg Q4H PRN PO 07/29/16 16:15 08/28/16 16:14 07/30/16 08:17 650 MG Lorazepam (Ativan Tab) PRN Dosing -Active Protocol UD PRN PO 07/29/16 16:30 6/15/17 16:29 07/29/16 19:07 1 MG Thiamine HCl (Vitamin B-1 Tab) 100 mg QAM PO 07/30/16 09:00 08/29/16 08:59 07/30/16 07:36 100 MG Multivitamins (Multivitamin Tab) 1 tab QAM PO 07/30/16 09:00 08/29/16 08:59 07/30/16 07:36 1 TAB Folic Acid 1 mg 1 mg QAM PO 07/30/16 09:00 08/29/16 08:59 07/30/16 07:35 1 MG Lorazepam/Syringe (Ativan Inj/ Syringe) 1 ml @ 0.5 mls/min Q30M PRN IV 07/29/16 16:30 08/28/16 16:29 Gabapentin (Neurontin Tab) 600 mg Q8H PO 07/30/16 14:00 07/31/16 06:01 07/30/16 13:05 600 MG Gabapentin (Neurontin Tab) 600 mg Q12H PO 07/31/16 18:00 08/01/16 06:01 Gabapentin (Neurontin Tab) 600 mg Q24H PO 08/02/16 06:00 08/02/16 06:01 Nicotine (Nicoderm Cq 14MG Patch) 1 patch QAM TD 07/30/16 09:00 08/29/16 08:59 07/30/16 07:35 1 PATCH Miscellaneous (Remove Nicoderm Patch) 1 ea HS N/A 07/29/16 21:00 08/28/16 20:59 Lorazepam (Ativan Inj) PRN Dosing -Active Protocol Q1H PRN IV 07/30/16 02:30 08/29/16 02:29 Physical Exam Vital Signs (Past 24 Hrs): Date Time Temp Pulse Resp B/P Pulse Ox O2 Delivery O2 Flow Rate FiO2 07/30/16 12:00 Room Air 07/30/16 11:27 36.7 81 16 124/87 98 Room Air 07/30/16 08:00 Room Air 07/30/16 07:17 36.8 81 16 117/74 98 Room Air 07/30/16 04:00 Room Air 07/30/16 03:56 36.6 76 17 124/84 98 Room Air 07/30/16 00:01 Room Air 07/29/16 23:52 36.2 100 17 122/74 98 Room Air 07/29/16 20:05 99 Room Air 07/29/16 19:41 36.5 84 18 133/80 99 07/29/16 18:15 36.5 84 16 140/91 99 Room Air 07/29/16 17:49 114/76 07/29/16 16:31 78 18 128/99 97 Room Air 07/29/16 16:29 128/99 07/29/16 14:30 132/89 07/29/16 14:08 97 19 96 07/29/16 14:08 97 18 141/91 98 Room Air 07/29/16 14:00 141/91 07/29/16 13:55 133/86 Physical Exam: Constitutional: appearance nourished, healthy and normal Ears, Nose, Mouth and Throat: mucous membranes moist, no injection and skin normal, eyes normal Cardiovascular: normal S-1 and S-2 and regular rate and rhythm Respiratory: clear to auscultation (CTA) and no rales, rhonchi or wheeze Musculoskeletal: no peripheral edema and good distal pulses Skin: no stigmata of neurocutaneous disease, left frontal contusion Eyes: extraocular muscles intact (EOMI) and pupils equal, round and reactive to light (PERRL) NEUROLOGIC EXAMINATION: Mental status: Alert and interactive Oriented to full date and location Oriented to person Speech fluent with no evidence of aphasia Cranial Nerves smile eye brow raise symmetric, tongue mid line no visible trauma Reflexes: Deep tendon reflexes were symmetrical and graded 2/5. Plantar responses were flexor. Sensory: no sensory deficits, cool or vibration Coordination: Romberg absent, finger to nose without bi pass, reaching tremor bilaterally R>L Gait/Stance: Posture normal. Gait normal: with steady with steps, base, turning and tandem gait. Motor: Negative for pronator drift of out stretched arms with eyes closed. 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, biceps triceps deltoids 5/5 bilaterally , hip flex ext plantar flex ext 5/5 bilaterally Laboratory Results Past 24 Hours: 07/30/16 05:26 07/30/16 05:26 Test 07/29/16 14:01 07/30/16 05:26 Immature Granulocyte % (Auto) 0.2 % White Blood Count 4.87 K/uL (4.8-10.8) Red Blood Count 4.22 M/uL (4.7-6.1) 4.11 M/uL (4.7-6.1) Hemoglobin 14.3 g/dL (14.0-18.0) Hematocrit 41.2 % (42-52) Mean Corpuscular Volume 97.6 fL (80-100) 98.8 fL (80-100) Mean Corpuscular Hemoglobin 33.9 pg (25-34) 33.3 pg (25-34) Mean Corpuscular Hemoglobin Concent 34.7 g/dl (32-36) 33.7 g/dl (32-36) Platelet Count 149 K/uL (130-400) Mean Platelet Volume 9.6 fL (7.4-10.4) 9.6 fL (7.4-10.4) Neutrophils (%) (Auto) 72.0 % Lymphocytes (%) (Auto) 18.5 % Monocytes (%) (Auto) 6.8 % Eosinophils (%) (Auto) 2.3 % Basophils (%) (Auto) 0.2 % Neutrophils # (Auto) 3.51 K/uL (1.4-6.5) Lymphocytes # (Auto) 0.90 K/uL (1.2-3.4) Monocytes # (Auto) 0.33 K/uL (0.11-0.59) Eosinophils # (Auto) 0.11 K/uL (0-0.5) Basophils # (Auto) 0.01 K/uL (0-0.2) Immature Granulocyte # (Auto) 0.01 K/uL (0.00-0.02) Prothrombin Time 10.7 SECONDS (9.0-12.0) Prothromb Time International Ratio 1.0 (0.9-1.1) Activated Partial Thromboplast Time 24.7 SECONDS (21.0-31.0) Partial Thromboplastin Ratio 1.0 Magnesium Level 2.1 mg/dl (1.8-2.4) Direct Bilirubin 0.3 mg/dl (0-0.2) Thyroid Stimulating Hormone (TSH) 0.939 uIu/ml (0.300-4.500) Ethyl Alcohol mg/dL < 3.0 mg/dl (0-3) RDW Standard Deviation 49.4 fL (36.4-46.3) RDW Coefficient of Variation 13.8 % (11.5-14.5) Anion Gap 7.0 mmol/L (3-11) Est Creatinine Clear Calc Drug Dose 154.1 ml/min Estimated GFR () 148.2 Estimated GFR (Non- 127.9 BUN/Creatinine Ratio 6.6 (10-20) Calcium Level 8.0 mg/dl (8.5-10.1) Total Bilirubin 0.6 mg/dl (0.2-1) Aspartate Amino Transf (AST/SGOT) 122 U/L (15-37) Alanine Aminotransferase (ALT/SGPT) 62 U/L (12-78) Alkaline Phosphatase 78 U/L (45-117) Total Protein 6.3 gm/dl (6.4-8.2) Albumin 3.3 gm/dl (3.4-5.0) Globulin 3.0 gm/dl (2.5-4.0) Albumin/Globulin Ratio 1.1 (0.9-2) Imaging CT head . No acute intracranial abnormality. Left frontal scalp contusion. Impression 25 year old male s/p seizure and fall down 3 stairs Plan 1. seizure precautions 2. currently on seizure protocol 3. thiamine and folate given 4. discussed no driving x 6 months, no bathing alone or swimming alone no heights 5. AA and not return to drinking is patients goal 6. currently has nicotine patch and is hoping to stop cigarettes also 7. MRI brain would better define any structure abnormalities or lesions if suspicion is high seizure no complete explained by EtOH withdrawal and family history of seizures- will do MRI prior to discharge 8. may need out patient 48--72 hour EEG if suspicion is high for seizure focus and current EEG negative 9. EEG read negative 10. further recommendations after MRI resulted I have seen and discussed above patient with Dr Luther Brothers, neurology I have seen this young man and reviewed his history and current labs prior post traumatic seizure with possible scarring left hemisphere now with clear cut etoh withdrawal seizure preceded by typical tremulousness etc and now on the new neurontin protocol and doing very weill with a most minimal tremor and no further events EEG normal so even if there were evidence for a structural lesion on mri ( whidh is pending ) I would offer no chronic aed rx unless of course he would have a non etoh or eoth withdrawal event at which point the policy would change Could be discharged tonight and is already going to aa with father in the future If the mri is abnormal then neurology can see in follow up and proceed from there discussed with Yamileth AVELAR and Sudha Lama MD today Luther Brothers MD
[2016-07-30 15:35] VITALS: BP 121/62; PULSE 80; TEMP 36.5; O2SAT 100
[2016-07-30] MEDS ORDERED: THM100 PO (15:45)
[2016-07-30] MEDS ORDERED: FLV1 PO (15:45)
[2016-07-30] MEDS ORDERED: MULT-589 PO (15:45)
[2016-07-30] MEDS ORDERED: NRN600 PO (15:45)
--- NOTE | 2016-07-30 15:46 | Discharge Instructions ---
Discharge Instructions Date of Service July 30, 2016. Admission Reason for Admission: Alcohol Withdrawal, Seizure Discharge Discharge Diagnosis / Problem: 1. Alcohol withdrawal 2. Seizure secondary to alcohol withdrawal Discharge Goals Goal(s): Prevent Disease Progression, Specific goals (QUIT ALCOHOL/SMOKING) Activity Recommendations Activity Limitations: resume your previous activity . Instructions / Follow-Up Instructions / Follow-Up MEDICATION CHANGES: 1,. New medication- Gabapentin 1 tablet today in evening and 1 tablet tomorrow 2. New medication- Multivitamin (over the counter), Thiamine, Folic acid as instructed 3. Discontinued Adderall as per neurology recommendations QUIT ALCOHOL QUIT SMOKING FOLLOW UP 1. Recommend establishing care with primary care physician Current Hospital Diet Patient's current hospital diet: Regular Diet Discharge Diet Recommended Diet: Regular Diet Pending Studies Studies pending at discharge: no Medical Emergencies . Who to Call and When: Medical Emergencies: If at any time you feel your situation is an emergency, please call 911 immediately. . Non-Emergent Contact Non-Emergency issues call your: Primary Care Provider . . "Provider Documentation" section prepared by Sudha Lama. . VTE Core Measure Inpt VTE Proph given/why not?: SCD's
--- NOTE | 2016-07-30 16:39 | DIAGNOSTIC IMAGING REPORT ---
MRI OF THE BRAIN WITHOUT IV CONTRAST CLINICAL HISTORY: Seizure. COMPARISON STUDY: CT of the brain dated 07/29/2016. TECHNIQUE: MRI of the brain was performed utilizing various T1 and T2-weighted sequences in the axial, sagittal, and coronal planes. IV contrast was not administered for this examination. The seizure protocol was utilized. The examination is degraded by motion artifact. FINDINGS: Brain parenchyma: The brain parenchyma is normal in appearance. There is no hemorrhage or mass effect. There is no restricted diffusion to suggest acute ischemia. Alcantar-white matter differentiation is preserved. No extra-axial fluid collection is seen. The cerebellar tonsils are normal in configuration. The hippocampi appear normal and symmetric. Ventricles, sulci, and cisterns: Normal in configuration. Pituitary and sella: Unremarkable. Intracranial vasculature: Normal flow voids are maintained at the skull base. Orbits: The bony orbits are grossly intact. Orbital contents are normal in appearance. Sinuses and mastoids: Clear. Calvarium: Unremarkable. Cervical cord: Partially visualized cervical spinal cord is normal in morphology and signal intensity. IMPRESSION: No acute intracranial abnormality noting a motion degraded examination. Electronically signed by: Asa Wayne M.D. 07/30/2016 4:38 PM Dictated Date/Time: 07/30/2016 4:35 PM
--- NOTE | 2016-07-30 18:12 | Discharge Summary ---
Discharge Summary Date of Service July 30, 2016. Discharge Summary Admission Date: July 29, 2016 at 16:19 Discharge Date: July 30, 2016 Discharge Disposition: Home Principal Diagnosis: 1. Alcohol withdrawal 2. Seizure secondary to Alcohol Withdrawal 3. Tobacco abuse disorder Procedures: Tele monitoring MRI Brain CXR CT head Consultations: Neurology, Dr Brothers Pending Studies/Follow-Up: Instructions / Follow-Up Instructions / Follow-Up MEDICATION CHANGES: 1,. New medication- Gabapentin 1 tablet today in evening and 1 tablet tomorrow 2. New medication- Multivitamin (over the counter), Thiamine, Folic acid as instructed 3. Discontinued Adderall as per neurology recommendations QUIT ALCOHOL QUIT SMOKING FOLLOW UP 1. Recommend establishing care with primary care physician Medication Reconciliation New Medications: Folic Acid (Folic Acid) 1 Mg Tab 1 MG PO QAM for 20 Days, #20 TAB Gabapentin (Gabapentin) 600 Mg Tab 600 MG PO Q24H for 2 Days, #2 TAB Multivitamins (Daily Charlie) 1 Tab Tab 1 TAB PO QAM, #30 TAB Thiamine HCl (Vitamin B-1) 100 Mg Tab 100 MG PO QAM, #20 TAB Discontinued Medications: Amphetamine-Dextroamphetamine 30MG (Adderall 30MG) 1 Tab Tab 15 MG PO UD PRN for TAKE HALF A TABLET EVERY MORNING AND HALF A TABLET AT 1200 HOURS. Diazepam (Valium) 5 Mg Tab 5 MG PO Q6H PRN for alcohol withdrawal, #14 TAB Admission Information HPI (per Admitting provider): 25 YO male who is not followed by a PCP. No chronic medical problems. He had a seizure in high school associated with a head injury; did not require anticonvulsant therapy. Drinking about 6 alcoholic beverages for the past several years. Decided a few days ago that he should quit. Was seen in ED on 07/27/16 with nausea and tremors. Received thiamine, lorazepam, diazepam. Inpatient rehab discussed in ED, but patient opted to be discharged. Over the last 2 days he has abstained from alcohol. Experiencing worsening tremors and nausea. No hematemesis, melena, hematochezia. Today he had an episode of loss of consciousness with apparent generalized seizure activity witnessed by his mother. Loss of consciousness associated with fall and striking his head. No tongue biting or incontinence. . 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 Received IV thiamine and multivitamins in ED. -Manage with gabapentin / lorazepam per protocol. Not requiring Lorazepam -Daily thiamine, folate, MVI. -Counseling done--patient is very motivated to quit. Wants to go for AA options and no rehab. Has support from her mother, father who is also trying to quit alcohol. SEIZURE Apparent seizure, most likely alcohol withdrawal. -EEG done- negative -Seizure precautions. -Consulted Neuro- Recommended MRI brain because of prior history of seizure --> Negative. Cleared for discharge. ADHD -Discontinue amphetamine-dextroamphetamine as per neurology SMOKING Smoking cessation counseling done VTE PROPHYLAXIS Low-moderate risk for VTE. No anticoagulants due to head injury. SCD's. Ambulate. DISPOSITION Eager to be discharged and wants to go home today. Cleared for discharge by neurology Establishment with PCP encouraged. . Total time spent on discharge = 35 minutes This includes examination of the patient, discharge planning, medication reconciliation, and communication with other providers. Discharge Instructions Discharge Goals Goal(s): Prevent Disease Progression, Specific goals (QUIT ALCOHOL/SMOKING) Activity Recommendations Activity Limitations: resume your previous activity . Instructions / Follow-Up Instructions / Follow-Up MEDICATION CHANGES: 1,. New medication- Gabapentin 1 tablet today in evening and 1 tablet tomorrow 2. New medication- Multivitamin (over the counter), Thiamine, Folic acid as instructed QUIT ALCOHOL QUIT SMOKING FOLLOW UP 1. Recommend establishing care with primary care physician Current Hospital Diet Patient's current hospital diet: Regular Diet Discharge Diet Recommended Diet: Regular Diet Pending Studies Studies pending at discharge: no Medical Emergencies . Who to Call and When: Medical Emergencies: If at any time you feel your situation is an emergency, please call 911 immediately. . Non-Emergent Contact Non-Emergency issues call your: Primary Care Provider . . "Provider Documentation" section prepared by Sudha Lama. . VTE Core Measure Inpt VTE Proph given/why not?: SCD's
[2016-07-30 18:37] VITALS: BP 121/62; PULSE 80; TEMP 36.5; O2SAT 100
[2016-07-31] MEDS ORDERED: GABAPENTIN 600MG Q12H DOSE PO SCH (18:00)
[2016-08-01 11:02] LABS: HYDROXYETHYLFLURAZEPAM CONF NEGATIVE NG/ML (CUTOFF=50); HYDROXYMIDAZOLAM NEGATIVE NG/ML (CUTOFF=50); HYDROXYTRIAZOLAM CONF NEGATIVE NG/ML (CUTOFF=50); TEMAZEPAM CONF 260 NG/ML (CUTOFF=50)
[2016-08-02] MEDS ORDERED: GABAPENTIN 600MG X1 DOSE PO SCH (06:00)
== END 2016-07-30 19:53 | disposition home or self-care (01) | DRG 897 ==
LOC: ENRESERVTM → ENRESERVDT → EDBD 13:38 → C.EDC 13:41 → C.2E 16:19
PROVIDERS: ADMIT Hospitalist; ATTEND Internal Medicine
DX: F10.239 Alcohol dependence with withdrawal, unspecified (principal); G40.89 Other seizures; S06.9X1A Unspecified intracranial injury with loss of consciousness of 30 minutes or less, initial encounter; F10.288 Alcohol dependence with other alcohol-induced disorder; F17.210 Nicotine dependence, cigarettes, uncomplicated; J45.909 Unspecified asthma, uncomplicated; F90.9 Attention-deficit hyperactivity disorder, unspecified type; Z79.899 Other long term (current) drug therapy; Z82.49 Family history of ischemic heart disease and other diseases of the circulatory system; Z83.49 Family history of other endocrine, nutritional and metabolic diseases; Z81.1 Family history of alcohol abuse and dependence; W10.9XXA Fall (on) (from) unspecified stairs and steps, initial encounter; Y92.009 Unspecified place in unspecified non-institutional (private) residence as the place of occurrence of the external cause; Y99.8 Other external cause status

== ENCOUNTER 2016-09-10 21:13 | Emergency (ER) | payer OTHER ==
[~2016-09-10] VITALS: Ht 175.3 cm; Wt 77.0 kg
[~2016-09-10 21:13] MED LIST changes: -AMPH30TA2 PO; -DIAZ-165 PO; +FLV1 PO; +MULT-589 PO; +NRN600 PO; +THM100 PO; -VNTHFA/IN IN
[2016-09-10 21:17] VITALS: TEMP 37; Ht 175.3 cm; Wt 77.0 kg
[2016-09-10] MEDS ORDERED: SODIUM CHLORIDE 0.9% 1000ML 1,000 ML IV STA ×2 (21:41)
[2016-09-10] MEDS ORDERED: KETOROLAC TROMETHAMINE 30 MG/ML VIAL IV STA (21:41)
[2016-09-10 22:04] LABS: BASO % 0.5 %; BASO ABS # 0.04 K/uL (0-0.2); COMPLETE YES; EOS % 3.6 %; IG% 0.4 %; LYMPH % 19.4 %; LYMPH ABS # 1.51 K/uL (1.2-3.4); MEAN CELL VOLUME 94.9 fL (80-100); MEAN CORPUSCULAR HEMOGLOBIN 32.8 pg (25-34); MEAN CORPUSCULAR HGB CONC 34.6 g/dl (32-36); MEAN PLATELET VOLUME 10.3 fL (7.4-10.4); MONO % 7.1 %; PLATELET COUNT 321 K/uL (130-400); WHITE BLOOD COUNT 7.78 K/uL (4.8-10.8)
[2016-09-10 22:29] LABS: ALT/SGPT 19 U/L (12-78); BLOOD UREA NITROGEN 9 mg/dl (7-18); CALCIUM 9.1 mg/dl (8.5-10.1); CARBON DIOXIDE 29 mmol/L (21-32); CHLORIDE 102 mmol/L (98-107); CREATININE 0.89 mg/dl (0.60-1.40); GLUCOSE 101 mg/dl (70-99); POTASSIUM 3.9 mmol/L (3.5-5.1); SODIUM 137 mmol/L (136-145)
[2016-09-10 22:32] LABS: ALKALINE PHOSPHATASE 79 U/L (45-117); AST/SGOT 17 U/L (15-37)
[2016-09-10 22:59] LABS: LYME DISEASE AB IGG POS (NEG); LYME DISEASE AB IGM POS (NEG)
[2016-09-10] MEDS ORDERED: DOXY100C2 PO (23:23)
[2016-09-10] MEDS ORDERED: DOXYCYCLINE HYCLATE 100 MG CAP PO ONE (23:30)
[2016-09-10 23:49] VITALS: BP 101/67; PULSE 76; O2SAT 99
--- NOTE | 2016-09-11 05:07 | EMERGENCY ROOM VISIT NOTE ---
History First contact with patient: 21:32 Chief Complaint: ILLNESS Stated Complaint: LETHARGIC, FEELS IT MIGHT BE FROM TICKBITE History of Present Illness The patient is a 25 year old male who presents to the Emergency Room with complaints of fatigue, joint pains and multiple rashes throughout his body for the past few days who was bit by multiple ticks in the past. Patient's concern for Lyme's disease. Patient denies headache, neck stiffness, cough, congestion , abdominal pain, chest pain, dyspnea. Patient had a fever 2 weeks ago but nothing since. No recent travel. Review of Systems See HPI for pertinent positives & negatives. A total of 10 systems reviewed and were otherwise negative. Past Medical/Surgical History Medical Problems: (1) ADHD (attention deficit hyperactivity disorder) (2) Asthma, Unspecified (3) Attn Defic Nonhyperact (4) Juv Osteochondrosis Leg (5) Pilonidal Cyst W Abscess (6) Tobacco Use Disorder Surgical Problems: (1) Status post excision pilonidal cyst Social History Smoking Status: Current Every Day Smoker Alcohol Use: heavy Drug Use: marijuana Marital Status: single Occupation Status: unemployed Current/Historical Medications Scheduled Doxycycline Hyclate (Vibramycin), 100 MG PO BID Allergies Coded Allergies: No Known Allergies (Unverified , NONE, 09/10/16) Physical Exam Vital Signs Date Time Temp Pulse Resp B/P (MAP) Pulse Ox O2 Delivery O2 Flow Rate FiO2 09/10/16 23:49 76 20 101/67 99 09/10/16 23:06 82 20 95/58 98 Room Air 09/10/16 21:17 37.0 106 16 119/72 95 Room Air Pain Rating (0-10): 2.0 Physical Exam VITALS: Vitals are noted on the nurse's note and reviewed by myself. Vital signs stable. GENERAL: Pleasant male, in no acute distress, nondiaphoretic, well-developed well-nourished. SKIN: Multiple Bullseye rashes throughout his body concerning for Lyme's The rest of the skin was without rashes, erythema, edema, or bruising. There is no tenting of the skin. Capillary reflex less than 2 seconds. HEAD: Normocephalic atraumatic. EARS: External auditory canals clear, tympanic membranes pearly boyd without erythema or effusion bilaterally. EYES: Pupils equal round and reactive to light and accommodation. Conjunctivae without injection, sclerae without icterus. Extraocular movements intact. NOSE: Patent, turbinates without inflammation or discharge. No sinus tenderness. MOUTH: Mucous membranes moist. Pharynx without erythema or exudate. Uvula midline. Airway patent. Tongue does not deviate. NECK: Supple without nuchal rigidity. No lymphadenopathy. No thyromegaly. Cervical spine is nontender. No JVD. No Meningeal signs HEART: Regular rate and rhythm without murmurs gallops or rubs. LUNGS: Clear to auscultation bilaterally without wheezes, rales or rhonchi. No dullness to percussion. No retractions or accessory muscle use. ABDOMEN: Positive bowel sounds x 4. Normal tympanic percussion. Soft, nontender, without masses or organomegaly. Layton sign negative. No guarding or rebound tenderness. MUSCULOSKELETAL: No muscle atrophy, erythema, or edema noted. NEURO: Patient was alert and oriented to person place and time. Normal sensation to light and sharp touch. No focal neurological deficits. Medical Decision & Procedures Laboratory Results 09/10/16 21:53 Red Blood Count 3.90, Mean Corpuscular Volume 94.9, Mean Corpuscular Hemoglobin 32.8, Mean Corpuscular Hemoglobin Concent 34.6, Mean Platelet Volume 10.3, Neutrophils (%) (Auto) 69.0, Lymphocytes (%) (Auto) 19.4, Monocytes (%) (Auto) 7.1, Eosinophils (%) (Auto) 3.6, Basophils (%) (Auto) 0.5, Neutrophils # (Auto) 5.37, Lymphocytes # (Auto) 1.51, Monocytes # (Auto) 0.55, Eosinophils # (Auto) 0.28, Basophils # (Auto) 0.04 09/10/16 21:53 Test 09/10/16 21:53 White Blood Count 7.78 K/uL (4.8-10.8) Red Blood Count 3.90 M/uL (4.7-6.1) Hemoglobin 12.8 g/dL (14.0-18.0) Hematocrit 37.0 % (42-52) Mean Corpuscular Volume 94.9 fL (80-100) Mean Corpuscular Hemoglobin 32.8 pg (25-34) Mean Corpuscular Hemoglobin Concent 34.6 g/dl (32-36) Platelet Count 321 K/uL (130-400) Mean Platelet Volume 10.3 fL (7.4-10.4) Neutrophils (%) (Auto) 69.0 % Lymphocytes (%) (Auto) 19.4 % Monocytes (%) (Auto) 7.1 % Eosinophils (%) (Auto) 3.6 % Basophils (%) (Auto) 0.5 % Neutrophils # (Auto) 5.37 K/uL (1.4-6.5) Lymphocytes # (Auto) 1.51 K/uL (1.2-3.4) Monocytes # (Auto) 0.55 K/uL (0.11-0.59) Eosinophils # (Auto) 0.28 K/uL (0-0.5) Basophils # (Auto) 0.04 K/uL (0-0.2) RDW Standard Deviation 41.8 fL (36.4-46.3) RDW Coefficient of Variation 12.3 % (11.5-14.5) Immature Granulocyte % (Auto) 0.4 % Immature Granulocyte # (Auto) 0.03 K/uL (0.00-0.02) Anion Gap 6.0 mmol/L (3-11) Est Creatinine Clear Calc Drug Dose 129.2 ml/min Estimated GFR () 139.7 Estimated GFR (Non- 120.5 BUN/Creatinine Ratio 10.0 (10-20) Calcium Level 9.1 mg/dl (8.5-10.1) Total Bilirubin 0.3 mg/dl (0.2-1) Direct Bilirubin < 0.1 mg/dl (0-0.2) Aspartate Amino Transf (AST/SGOT) 17 U/L (15-37) Alanine Aminotransferase (ALT/SGPT) 19 U/L (12-78) Alkaline Phosphatase 79 U/L (45-117) Total Protein 7.0 gm/dl (6.4-8.2) Albumin 3.3 gm/dl (3.4-5.0) Lyme Disease IgG Antibody POS (NEG) Monoscreen POS (NEG) Medications Administered Medications (Trade) Dose Ordered Sig/Hayde Route Start Time Stop Time Status Last Admin Dose Admin Sodium Chloride 1,000 ml @ 999 mls/hr Q1H1M STAT IV 09/10/16 21:41 09/10/16 22:41 DC 09/10/16 21:59 999 MLS/HR Sodium Chloride 1,000 ml @ 125 mls/hr Q8H STAT IV 09/10/16 21:41 09/11/16 00:04 DC 09/10/16 23:09 125 MLS/HR Ketorolac Tromethamine (Toradol Inj) 30 mg NOW STAT IV 09/10/16 21:41 09/10/16 21:43 DC 09/10/16 22:00 30 MG Doxycycline Hyclate (Vibramycin Cap) 100 mg ONE ONCE PO 09/10/16 23:30 09/10/16 23:31 DC 09/10/16 23:47 100 MG ED Course Prior records/ancillary studies reviewed and summarized above. Nursing notes reviewed. The patient's history was concerning for fatigue, rash, joint pains. Differential diagnosis: Etiologies such as lymes, mono, metabolic, infection, hypo/hyperglycemia, electrolyte abnormalities, cardiac sources, intracerebral event, toxicologic, neurologic, as well as others were entertained. Physical examination: As above. ER treatment provided: IV Lock Doxycycline On reassessment the patient felt better. Diagnostics interpretation by me: The labs revealed positive Lyme's, positive mono which could be a false positive from the Lyme's disease Exam and history seem consistent with Lyme's disease. Patient had multiple erythema migrans throughout his body. He no signs of meningitis. He had joint pains. He was neurovascular and neurologically intact. He was well-appearing. He was started on doxycycline and advised to follow-up family care in a few days or here in the ER sooner for headache, neck is, high fevers, worsening signs or symptoms or as needed. By the evaluation outlined above emergent etiologies such as electrolyte abnormalities, cardiac sources, intracerebral event, toxologic, neurologic, abnormalities blood glucose, metabolic, as well as others were deemed relatively unlikely. The pt informed about the findings as listed above. All questions were answered and pleased with the treatment. Return instructions were outlined and the patient was discharged in stable condition. Outpatient prescription management: Doxycycline Referral: The patient was referred back to primary care physician for follow-up in 2 to 3 days for a recheck of the current condition. Case reviewed with my attending Medical Decision As above Impression Primary Impression: Lyme disease Departure Information Dispostion Home / Self-Care Condition GOOD Prescriptions Doxycycline Hyclate (VIBRAMYCIN) 100 Mg Cap 100 MG PO BID for 28 Days, #56 CAP Prov: Chiquita Cooper ., MARINE 09/10/16 Forms WORK / SCHOOL INSTRUCTIONS, HOME CARE DOCUMENTATION FORM, IMPORTANT VISIT INFORMATION Patient Instructions My [facility], ED Lyme Disease Additional Instructions Doxycycline 100mg: Take one pill twice daily for 28 days for your infection. Take with food, but avoid dairy. Avoid prolonged sun exposure since this medication makes you temporarily more susceptible to sunburns. All antibiotics can cause diarrhea. If this occurs and you feel worse or it does not resolve in 1-2 days follow up with your doctor or return to the Emergency Department as this could be signs of serious underlying problems. Any medication can cause an allergic reaction, stop the pills immediately and return to the ER for rash, hives, breathing difficulties, or swelling. Acetaminophen(Tylenol) may be used for fever or pain. Use 1000mg every six hours as needed. Avoid using more than 3000mg in a 24 hour period. AND/OR Ibuprofen(Motrin, Advil) may be used for fever or pain. Use 600mg every six hours as needed. Take with food. Avoid using more than 2400mg in a 24 hour period. Do not use 2400mg per day for more than three consecutive days without physician direction. Prolonged inappropriate use can lead to stomach upset or ulcers. Controlling your fever with Tylenol and Ibuprofen as above will make you feel better. Rest and drink plenty of fluids. Avoid strenuous activity until your symptoms resolve and your breathing returns to normal. Continue current medications. Return to the ER for neck stiffness, headache, chest pain, difficulty breathing , persistent fevers, vomiting, worsening of your condition, or as needed. Follow-up with family care in 2-3 days.
[2016-09-15 01:36] LABS: 18KDIGG BAND NONREACTIVE (NONREACTIVE); 23KDIGG BAND REACTIVE (NONREACTIVE); 23KDIGM BAND REACTIVE (NONREACTIVE); 28KDIGG BAND NONREACTIVE (NONREACTIVE); 30KDIGG BAND NONREACTIVE (NONREACTIVE); 39KDIGG BAND REACTIVE (NONREACTIVE); 39KDIGM BAND REACTIVE (NONREACTIVE); 41KDIGG BAND REACTIVE (NONREACTIVE); 41KDIGM BAND REACTIVE (NONREACTIVE); 45KDIGG BAND REACTIVE (NONREACTIVE); 58KDIGG BAND NONREACTIVE (NONREACTIVE); 66KDIGG BAND NONREACTIVE (NONREACTIVE); 93KDIGG BAND NONREACTIVE (NONREACTIVE)
== END 2016-09-10 23:50 | disposition home or self-care (01) ==
LOC: C.EDB 21:14
DX: A69.20 Lyme disease, unspecified (principal); F90.9 Attention-deficit hyperactivity disorder, unspecified type; M92.9 Juvenile osteochondrosis, unspecified; J45.909 Unspecified asthma, uncomplicated; F17.200 Nicotine dependence, unspecified, uncomplicated; Z86.19 Personal history of other infectious and parasitic diseases

== ENCOUNTER 2018-08-09 00:44 | Inpatient (IN) ==
[2018-08-09] MEDS ORDERED: LORazepam 2 MG/4 ML VIAL IV STA (01:04)
[2018-08-09] MEDS ORDERED: MULTI-VITAMIN INFUSION 10 ML, THIAMINE HCL 100 MG, FOLIC ACID 1 MG in SODIUM CHLORIDE 0... IV SCH (01:15)
[2018-08-09 01:35] LABS: Basophils # (auto) 0.02 K/uL (0-0.2); Basophils % (auto) 0.3 %; Eosinophils # (auto) 0.26 K/uL (0-0.5); Eosinophils % (auto) 3.6 %; Hematocrit (blood only) 29.2 % (42-52); Hemoglobin 10.5 g/dL (14.0-18.0); Immature Granulocytes # (auto) 0.04 K/uL (0.00-0.02); Immature Granulocytes % (auto) 0.6 %; Lymphocytes # (auto) 2.25 K/uL (1.2-3.4); Lymphocytes % (auto) 31.3 %; Mean Platelet Volume 8.2 fL (7.4-10.4); Monocytes # (auto) 0.54 K/uL (0.11-0.59); Monocytes % (auto) 7.5 %; Neutrophils # (auto) 4.08 K/uL (1.4-6.5); Neutrophils % (auto) 56.7 %; Platelet Count 219 K/uL (130-400); RDW Coefficient of Variation 17.4 % (11.5-14.5); RDW Standard Deviation 61.7 fL (36.4-46.3); Red Blood Count 2.95 M/uL (4.7-6.1); White Blood Count 7.19 K/uL (4.8-10.8)
[2018-08-09 01:53] LABS: Alanine Aminotransferase 25 U/L (12-78); Aspartate Aminotransferase 45 U/L (15-37); BUN Creatinine Ratio 14.5 (10-20); Bilirubin Direct < 0.1 mg/dl (0-0.2); Blood Urea Nitrogen 10 mg/dl (7-18); Calcium 8.2 mg/dl (8.5-10.1); Carbon Dioxide 30 mmol/L (21-32); Chloride 105 mmol/L (98-107); Creatinine Clr Calc Pharmacy 169.4 ml/min; Est GFR (African American) > 150.0; Est GFR (Non-African American) 130.4; Glucose 109 mg/dl (70-99); Magnesium 2.3 mg/dl (1.8-2.4); Potassium 3.7 mmol/L (3.5-5.1); Sodium 139 mmol/L (136-145)
[2018-08-09 02:02] LABS: Alkaline Phosphatase 77 U/L (45-117); Bilirubin,Total 0.2 mg/dl (0.2-1); Creatine Kinase 64 U/L (39-308)
[2018-08-09] MEDS ORDERED: FAMOTIDINE 20MG/5ML IV PUSH IV STA (02:08)
[2018-08-09] MEDS ORDERED: GABAPENTIN 1200MG ALCOHOL WITHDRAWAL LOAD PO STA (02:18)
[2018-08-09] MEDS ORDERED: LORazepam 3 MG/6 ML VIAL IV PRN (02:18)
[2018-08-09] MEDS ORDERED: LORazepam 2 MG/4 ML VIAL IV PRN (02:18)
[2018-08-09] MEDS ORDERED: ATIVAN IV ALCOHOL WITHDRAWL IV SCH (02:30)
[2018-08-09] MEDS ORDERED: GABAPENTIN 600 MG TAB PO SCH (03:00)
--- NOTE | 2018-08-09 03:48 | History & Physical Report ---
Date of Service August 09, 2018 Assessment & Plan (1) Alcohol withdrawal seizure: Recurrent episode Anemia ER FOBT positive Intermittent dark stools at home as per patient account, hx gastritis, chronic esophagitis on recent EGD May 2018 Possible slowly UGIB ongoing tobacco/alcohol use ADD currently off meds ICU monitoring DT precautions Seizure precautions IV PPI for possible UGIB causing significant decrease in hemoglobin GI consult RE U GIB anemia work-up, trend H&H, transfuse PRBC if hemoglobin less than 7 and/or for symptomatic anemia DVT prophylaxis SCDs RE GI bleed Full code as per mother. Patient's mother requesting updates from providers. Ms. Amber Morales, contact #[phone]. Secondary contact is patient's father, Mr. Pepe Morales, contact #[phone]. History of Present Illness Chief Complaint: Seizures Primary Care Provider: NO PCP History obtained from patient, family, and records. History somewhat limited from patient secondary to lethargy. Medical history significant for ADD, ongoing tobacco/alcohol use, hx of gastritis/chronic esophagitis as per records. Recent confinement July 2016 for alcohol withdrawal seizures. EEG, MRI brain negative. Recent ER visit 08/04/2018 for alcohol withdrawal. Patient observed overnight at the ER. Patient declined alcohol rehab as per ER notes. No alcohol withdrawal meds on ER discharge as per mother. At home, patient noted to be sleeping a lot initially. Denies chest pain, S OB, abdominal pain, diarrhea , depression symptoms. Stools occasionally dark as per patient. Last night, patient told his girlfriend that he felt dizzy. Subsequent generalized tonic-clonic seizures resulting in a bit and lip as per girlfriend. Episode lasted 3 minutes as per girlfriend. No urinary incontinence. Patient brought to the ER. IV Ativan,Famotidine, banana bag administered at the ER. Medical History as above EGD May 2018 showed chronic esophagitis, gastritis, hiatal hernia Surgical History : None Family History : Hypertension, alcoholism Personal/Social history : One pack daily, alcohol abuse, ExtraFootie Allergies Allergy/AdvReac Type Severity Reaction Status Date / Time No Known Allergies Allergy Verified 08/09/18 00:50 Home Medications Home Medications Medication Instructions Recorded Confirmed Type No Known Home Medications 08/04/18 08/09/18 History Past Med/Surg History Medical History Alcohol abuse (Acute) Hematemesis ADHD (attention deficit hyperactivity disorder) (Chronic) Lyme disease (Acute) ADHD Anxiety HX OF Asthma A CHILD (NO CURRENT PROBLEMS) GERD (gastroesophageal reflux disease) Seizure 1 EVENT IN 2009 AFTER HEAD TRAUMA (HX 2 CONCUSSIONS) Surgical History History of tooth extraction Pilonidal cyst REMOVED Family History Other No significant family history Social History Preferred Language: Portuguese Communication Ability: Effective Tool Planner Required: No Beliefs That Will Affect Care: None marital status: Single Current Living Situation: Family current occupational status: employed Other Information That Helps Us Care for You: No Feels Safe at Home: Yes Safety Concerns: Feels Safe At This Time Smoking Status: Former smoker Tobacco Type: cigarettes Cigarettes Per Day: ADVISED TO NOT USE 8 HOURS BEFORE PROCEDURE Do You Dip or Chew Tobacco: No Second Hand Exposure: No Tobacco Cessation Education Requested by Patient: No Hx Alcohol Use: Yes Alcohol type: hard liquor Hx Substance Use: No Review of Systems Review of Systems: Could not be reliably obtained Physical Exam Physical Exam: GENERAL: Lethargic, no respiratory distress SKIN: Pallor, warm HEENT: Pale palpebral conjunctivae, no ptosis, dry buccal mucosa NECK : Supple, no tenderness CHEST : CTA, no tenderness HEART : RRR, no obvious murmurs ABDOMEN: Some distention, nontender Rectal: Intact sphincter, dark stool, heme-positive EXTREMITIES : No LE swelling/tenderness, no other conspicuous deformities noted NEUROLOGIC : Lethargic, no facial asymmetry, no other gross focality Results & Data Vital Signs (Past 12 Hours) Vital Signs Temp Pulse Pulse Resp BP BP Pulse Ox 08/09/18 03:30 81 14 109/58 L 96 08/09/18 03:00 90 12 94/45 L 95 08/09/18 02:40 84 13 96 08/09/18 02:39 85 13 109/56 L 96 08/09/18 02:31 92 H 12 109/56 L 95 08/09/18 02:30 92 H 12 95 08/09/18 02:20 96 H 14 95 08/09/18 02:10 90 13 96 08/09/18 02:02 89 17 115/65 97 08/09/18 01:50 93 H 13 95 08/09/18 01:40 92 H 13 95 08/09/18 01:30 96 H 14 111/57 L 95 08/09/18 01:28 97 H 13 146/80 H 94 08/09/18 01:20 98 H 13 95 08/09/18 01:10 98 H 12 97 08/09/18 01:00 108 H 21 146/80 H 97 08/09/18 00:54 36.7 C 104 H 104 H 15 132/82 132/82 97 08/09/18 00:50 109 H 17 97 08/09/18 00:49 104 H 16 132/82 97 Laboratory Results Laboratory Results WBC 7.19 K/uL (4.8-10.8) 08/09/18 01:20 RBC 2.95 M/uL (4.7-6.1) L 08/09/18 01:20 Hgb 10.5 g/dL (14.0-18.0) L 08/09/18 01:20 Hct 29.2 % (42-52) L 08/09/18 01:20 MCV 99.0 fL (80-100) 08/09/18 01:20 MCH 35.6 pg (25-34) H 08/09/18 01:20 MCHC 36.0 g/dL (32-36) 08/09/18 01:20 RDW Std Deviation 61.7 fL (36.4-46.3) H 08/09/18 01:20 RDW Coeff of Betina 17.4 % (11.5-14.5) H 08/09/18 01:20 Plt Count 219 K/uL (130-400) 08/09/18 01:20 MPV 8.2 fL (7.4-10.4) 08/09/18 01:20 Immature Gran % (Auto) 0.6 % 08/09/18 01:20 Neut % (Auto) 56.7 % 08/09/18 01:20 Lymph % (Auto) 31.3 % 08/09/18 01:20 Marion % (Auto) 7.5 % 08/09/18 01:20 Eos % (Auto) 3.6 % 08/09/18 01:20 Baso % (Auto) 0.3 % 08/09/18 01:20 Immature Gran # (Auto) 0.04 K/uL (0.00-0.02) H 08/09/18 01:20 Neut # (Auto) 4.08 K/uL (1.4-6.5) 08/09/18 01:20 Lymph # (Auto) 2.25 K/uL (1.2-3.4) 08/09/18 01:20 Marion # (Auto) 0.54 K/uL (0.11-0.59) 08/09/18 01:20 Eos # (Auto) 0.26 K/uL (0-0.5) 08/09/18 01:20 Baso # (Auto) 0.02 K/uL (0-0.2) 08/09/18 01:20 PT 10.0 Seconds (9.0-12.0) 08/09/18 01:20 INR 1.0 (0.9-1.1) 08/09/18 01:20 Sodium 139 mmol/L (136-145) 08/09/18 01:20 Potassium 3.7 mmol/L (3.5-5.1) 08/09/18 01:20 Chloride 105 mmol/L (98-107) 08/09/18 01:20 Carbon Dioxide 30 mmol/L (21-32) 08/09/18 01:20 4.0 (3-11) 08/09/18 01:20 BUN 10 mg/dl (7-18) 08/09/18 01:20 0.71 mg/dl (0.6-1.4) 08/09/18 01:20 Est Cr Clr Drug Dosing 169.4 ml/min 08/09/18 01:20 Est GFR ( Amer) > 150.0 08/09/18 01:20 Est GFR (Non-Af Amer) 130.4 08/09/18 01:20 14.5 (10-20) 08/09/18 01:20 Glucose 109 mg/dl (70-99) H 08/09/18 01:20 1.1 mmol/L (0.4-2.0) 08/09/18 01:25 Calcium 8.2 mg/dl (8.5-10.1) L 08/09/18 01:20 Magnesium 2.3 mg/dl (1.8-2.4) 08/09/18 01:20 0.2 mg/dl (0.2-1) 08/09/18 01:20 < 0.1 mg/dl (0-0.2) 08/09/18 01:20 AST 45 U/L (15-37) H 08/09/18 01:20 ALT 25 U/L (12-78) 08/09/18 01:20 77 U/L (45-117) 08/09/18 01:20 64 U/L (39-308) 08/09/18 01:20 6.0 gm/dl (6.4-8.2) L 08/09/18 01:20 3.0 gm/dl (3.4-5.0) L 08/09/18 01:20 724 U/L (73-393) H 08/09/18 01:20 TSH 2.680 uIu/ml (0.300-4.500) 08/09/18 01:20 < 3.0 mg/dl (0-3) 08/09/18 01:[address] head initial read no ICH, mass-effect or edema. Sinusitis. Chest x-ray as per my interpretation no acute pathology EKG as per my interpretation rate 105, sinus tachycardia, no ischemia
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
[2018-08-09] MEDS: PANTOprazole 40 MG in SYRINGE 0 ML IV SCH ×2 (05:02→21:34)
[2018-08-09] MEDS ORDERED: ICU PROTOCOL FOR HYPERGLYCEMIA PRN (05:36)
[2018-08-09] MEDS ORDERED: PROMETHAZINE HCL 12.5 MG in SODIUM CHLORIDE 0.9% 50 ML IV PRN (05:36)
[2018-08-09] MEDS ORDERED: GABAPENTIN 600 MG TAB PO STA (05:45)
[2018-08-09] MEDS: LACTATED RINGER'S 1,000 ML IV SCH ×4 (06:00→23:56)
--- NOTE | 2018-08-09 06:03 | XRay Report ---
XR chest 1V portable CLINICAL HISTORY: seizure dyspnea COMPARISON STUDY: 08/04/2018 FINDINGS: The bones soft tissues and hemidiaphragms are normal. The cardiomediastinal silhouette is n ormal. The lungs are clear. The pulmonary vasculature is normal. IMPRESSION: Negative chest. The above report was generated using voice recognition software. It may contain grammatical, syntax or spelling errors. Electronically signed by: Dominik Locke M.D. 08/09/2018 6:02 AM
--- NOTE | 2018-08-09 06:07 | CT Scan Report ---
CT head/brain wo con CT DOSE: 614.27 mGy.cm HISTORY: Mental status change seizure, etoh withdrawal TECHNIQUE: Multiaxial CT images of the head were performed without the use of intravenous contrast. A dose lowering technique was utilized adhering to the principles of ALARA. Comparison: 07/29/2016 Findings: Mild mucosal thickening of all sinuses. The calvarium and skull base are intact. The ventri cles and sulci are within normal limits. There is no mass, hematoma, midline shift, or acute infarct. Impression: Mild mucosal thickening of all major sinuses. Brain is negative. The above report was generated using voice recognition software. It may contain grammatical, syntax or spelling errors. Electronically signed by: Dominik Locke M.D. 08/09/2018 6:05 AM
[2018-08-09] MEDS ORDERED: LORazepam 1 MG/2 ML VIAL IV PRN (06:26)
[2018-08-09 06:27] LABS: Hemoglobin 10.3 g/dL (14.0-18.0); Reticulocyte % 4.1 % (0.5-2.0); Reticulocytes # 0.12 10^6/uL (0.02-0.10)
[2018-08-09 07:06] LABS: Ferritin 128.1 ng/ml (8-388)
[2018-08-09] MEDS: NICOTINE 21 MG/24 HR TDSY TD SCH (08:39)
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
[2018-08-09] MEDS: GABAPENTIN 600 MG TAB PO SCH ×2 (11:56→17:00)
[2018-08-09 12:02] LABS: Hematocrit (blood only) 29.6 % (42-52); Hemoglobin 10.5 g/dL (14.0-18.0)
[2018-08-09] MEDS ORDERED: IOVERSOL 100ml IV PRN (12:30)
--- NOTE | 2018-08-09 12:49 | CT Scan Report ---
CT abdomen oral and IV con CT DOSE: 323.91 mGy.cm HISTORY: Pain pancreatitis and drop in Hb from 16 to 10. TECHNIQUE: Multiaxial CT images of the abdomen was performed following the use of intravenous and ora l contrast. A dose lowering technique was utilized adhering to the principles of ALARA. COMPARISON STUDY: None. FINDINGS: The lung bases are clear. The liver, spleen, gallbladder, pancreas, kidneys, and adrenal gl ands are within normal limits. No bowel wall thickening or obstruction. No suspicious lytic or blast ic osseous lesions. Mild increase in colonic fecal load consistent with a component of fecal stasis. IMPRESSION: 1. Mild increase in colonic fecal load consistent with fecal stasis. 2. Otherwise negative study. The above report was generated using voice recognition software. It may contain grammatical, syntax or spelling errors. Electronically signed by: Dominik Locke M.D. 08/09/2018 12:47 PM
[2018-08-09 13:06] LABS: Appearance Urine Clear (Clear); Bilirubin Urine Negative (Negative); Blood Urine Negative (Negative); Color Urine Yellow; Glucose Urine UA Negative (Negative); Ketones Urine Negative (Negative); Leukocyte Esterase Urine Negative (Negative); Nitrite Urine Negative (Negative); Protein Urine Negative (Negative); Specific Gravity Urine 1.016 (1.000-1.030); Urobilinogen Urine Negative (Negative); pH Urine 6.5 (4.5-7.5)
[2018-08-09 13:25] LABS: Amphetamines+Metham, Urine Neg (Neg); Barbiturates, Urine Neg (Neg); Benzodiazepine, Urine Neg (Neg); Cocaine, Urine Neg (Neg); MDMA (Ecstacy), Urine Neg (Neg); Methadone, Urine Neg (Neg); Opiate, Urine Pos (Neg); Phencyclidine, Urine Neg (Neg)
[2018-08-09] MEDS: SUCRALFATE 1 GM/10 ML UDC PO SCH ×2 (17:00→21:22)
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
[2018-08-09] MEDS: OXYCODONE HCL IR 5 MG TAB (IMMEDIATE RELEASE) PO PRN (21:33)
[2018-08-09] MEDS: LORazepam 1 MG/2 ML VIAL IV PRN ×2 (22:26→23:55)
--- NOTE | 2018-08-09 22:40 | Consultation Report ---
DATE OF CONSULTATION: 08/09/2018 GASTROENTEROLOGY CONSULT AGE: 27. SEX: Male. RACE: . ATTENDING PHYSICIAN: Dr. Benton. CONSULTING PHYSICIAN: Eloy Pacheco DO. REASON FOR CONSULTATION: GI bleed. HISTORY OF PRESENT ILLNESS: Doc Morales is a 27-year-old male who was last seen by our service on 06/11/2018 when he underwent an upper endoscopy for hematemesis. At that time he was found to have mildly severe esophagitis as well as gastritis, both of which were biopsied. Stomach biopsy showed mild chronic gastritis and his esophageal biopsies showed no diagnostic abnormality. He was placed on PPI therapy. He presented to the Department of Emergency Medicine on 08/09/2018 with a reported alcohol withdrawal seizure. In the ER, he was noted to have an H and H of 10.5 and 29.2, which was down from earlier this month on 08/04/2018 when he was noted to have an H and H of 14.6 and 38.9. The patient did reportedly have some dark bowel movements and had reported that he had stopped taking his PPI therapy as it was prescribed previously. Fecal occult blood test in the ER was positive. He did undergo a head CT secondary to seizure activity showing mild mucosal thickening of all major sinuses with no evidence of any other abnormality noted. CT scan of the abdomen was performed as well which showed a mild increase in fecal load, but otherwise was negative. He was admitted to the ICU secondary to his seizure activity and questionable GI bleed. He was started on Protonix 40 mg IV b.i.d. and was treated with gabapentin therapy and alcohol withdrawal prophylaxis as needed. At the time that I saw the patient, he denied any abdominal pain. He further denied any recent hematemesis or hematochezia. He did state that he occasionally has a dark stool at home, though attributes this to not taking his Protonix as previously prescribed. He denies any fevers or chills, nausea or vomiting or hematemesis, melena or hematochezia since his arrival. He does become very tearful during our discussion and states that he knows that alcohol is causing all of his problems and would like to get away from this. He denies any other complaints. PAST MEDICAL HISTORY: Significant for esophagitis, gastritis, alcohol abuse, attention deficit hyperactivity disorder, Lyme disease, asthma, GERD, anxiety, alcohol withdrawal seizure. He does have a history of seizures in 2010 following a concussion as well. PAST SURGICAL HISTORY: Includes third molar extraction, pilonidal cyst repair. ALLERGIES: None. MEDICATIONS: At present include Protonix 40 mg IV b.i.d., gabapentin, folic acid 1 mg p.o. q.a.m., multivitamin 1 tab p.o. q.a.m., thiamine 100 mg p.o. q.a.m., nicotine patch 21 mg transdermally daily. P.R.N. MEDICATIONS: Include Ativan, oxycodone. SOCIAL HISTORY: He drinks daily hard liquor. He does not quantify this for me. Denies any illicit drug use. He denies current tobacco use. FAMILY HISTORY: Negative for GI malignancy or inflammatory bowel disease. REVIEW OF SYSTEMS: Negative x12 system review other than pertinent positives as in the HPI PHYSICAL EXAMINATION: VITAL SIGNS: Temperature 37.1, respirations 17, pulse 82, blood pressure 118/74, pulse ox 98% on room air. GENERAL: He is alert, awake, tearful, cooperative, no acute distress. HEAD: Normocephalic, atraumatic. EYES: Pupils equal, round. Extraocular muscles are intact. ENT: External evaluation of ears and nose are normal. Oropharynx is clear. NECK: Soft and supple. There is no JVD or lymphadenopathy. CHEST: Clear to auscultation bilaterally. CARDIOVASCULAR SYSTEM: Regular rate and rhythm. ABDOMEN: Soft, nontender, nondistended. Positive bowel sounds. There is no hepatosplenomegaly or stigmata of chronic liver disease. EXTREMITIES: No clubbing, cyanosis, or edema. SKIN: Soft, pink. LABORATORY STUDIES AND RADIOGRAPHIC STUDIES: Reviewed in the HPI. IMPRESSION: A 27-year-old male with known history of gastritis and esophagitis off PPI therapy secondary to medical noncompliance who presented with a questionable alcohol withdrawal seizure, melena and acute blood loss anemia. PLAN: At the present time, I would recommend that the patient be continued on Protonix 40 mg IV b.i.d. I talked to him about the need for medical compliance and he did seem to understand this and is agreeable to continue this as an outpatient. He just underwent an upper endoscopy in May of this year. Therefore, I do not believe that the patient would have developed esophageal varices in the short time interval and I have no evidence to suggest that the patient has cirrhosis at this time, though I did discuss with him the long-term risks of continued excessive alcohol intake including but not limited to cirrhosis of the liver. The patient does verbalize to me that he would like to stop drinking alcohol. I informed him that socially responsible investment adviser at the hospital can help to arrange either for outpatient or inpatient counseling to aid in this if he is truly committed to this. I will add Carafate 1 gram p.o. q.i.d. a.c. and at bedtime to his medical regimen and I will follow his clinical course and make further recommendations as needed. Once again, thank you for allowing me to participate in the care of this patient. If you have any further questions, please do not hesitate in contacting me.
[2018-08-10] MEDS: OXYCODONE HCL IR 5 MG TAB (IMMEDIATE RELEASE) PO PRN (05:06)
[2018-08-10] MEDS: GABAPENTIN 600 MG TAB PO SCH ×3 (05:06→20:33)
[2018-08-10] MEDS: LORazepam 1 MG/2 ML VIAL IV PRN (05:11)
[2018-08-10] MEDS: NICOTINE 21 MG/24 HR TDSY TD SCH (07:47)
[2018-08-10] MEDS: SUCRALFATE 1 GM/10 ML UDC PO SCH ×4 (07:47→20:33)
[2018-08-10] MEDS: PANTOprazole 40 MG in SYRINGE 0 ML IV SCH (07:51)
[2018-08-10] MEDS ORDERED: FOLIC ACID 1 MG TAB PO SCH (09:00)
[2018-08-10] MEDS ORDERED: MULTIVITAMIN TAB PO SCH (09:00)
[2018-08-10] MEDS ORDERED: THIAMINE HCL 100 MG TAB PO SCH (09:00)
[2018-08-10 10:02] LABS: Hematocrit (blood only) 35.5 % (42-52); Hemoglobin 12.6 g/dL (14.0-18.0); Mean Corpuscular Hgb Conc 35.5 g/dL (32-36); Mean Corpuscular Volume 102.9 fL (80-100); Mean Platelet Volume 8.2 fL (7.4-10.4); Platelet Count 267 K/uL (130-400); RDW Coefficient of Variation 17.1 % (11.5-14.5); RDW Standard Deviation 62.9 fL (36.4-46.3); Red Blood Count 3.45 M/uL (4.7-6.1); White Blood Count 7.95 K/uL (4.8-10.8)
--- NOTE | 2018-08-10 10:12 | Gastroenterology Progress Note ---
Date of Service August 10, 2018 Assessment & Plan (1) Anemia: (2) Alcohol withdrawal seizure: 1. Continue Pantoprazole 40 mg IV BID. 2. Continue Carafate 1 g ACHS. 3. Supportive care per primary team. 4. Recommend alcohol abstinence. Supervising Physician Co-Signing Physician Notes Agree with LILLIAN Llamas as above Abd: Soft, NT, ND, +BS Continue current therapy and supportive care Will sign off at this time. Subjective Patient reports continued unsteadiness with his gait. Tolerating a regular diet. Reports some mild soreness of throat. States some painful swallowing. No other GI complaints. Review of Systems Constitutional: as per Subjective / HPI Respiratory: no problem reported Cardiovascular: no problem reported Gastrointestinal: as per Subjective / HPI Neurologic: as per Subjective / HPI Physical Exam Respiratory: normal respiratory effort, lungs clear to auscultation Cardiovascular: Rate/Rhythm: regular rate and regular rhythm Gastrointestinal (Abdomen): normal bowel sounds, soft, nontender, no hepatosplenomegaly Psychiatric: A+Ox3, euthymic affect Results & Data Vital Signs (Past 12 Hours) Vital Signs Temp Pulse Resp BP Pulse Ox 08/10/18 07:33 36.7 C 99 H 16 119/81 100 08/09/18 23:54 36.8 C 79 20 118/83 98 08/09/18 22:19 36.6 C 98 H 20 122/75 99 Laboratory Results Abnormal lab results 08/09/18 08/09/18 08/10/18 Range/Units 11:47 12:40 09:52 RBC 3.45 L (4.7-6.1) M/uL Hgb 10.5 L 12.6 L (14.0-18.0) g/dL Hct 29.6 L 35.5 L (42-52) % MCV 102.9 H (80-100) fL MCH 36.5 H (25-34) pg RDW Std Deviation 62.9 H (36.4-46.3) fL RDW Coeff of Betina 17.1 H (11.5-14.5) % Urine Opiates Screen Pos H (Neg) U Marijuana (THC) Screen Pos H (Neg) (1) Anemia Anemia type: unspecified type Qualified Code(s): D64.9 - Anemia, unspecified
[2018-08-10 10:34] LABS: BUN Creatinine Ratio 7.4 (10-20); Blood Urea Nitrogen 5 mg/dl (7-18); Calcium 8.5 mg/dl (8.5-10.1); Carbon Dioxide 31 mmol/L (21-32); Chloride 105 mmol/L (98-107); Creatinine Clr Calc Pharmacy 182.2 ml/min; Est GFR (African American) > 150.0; Est GFR (Non-African American) 136.1; Glucose 103 mg/dl (70-99); Potassium 3.9 mmol/L (3.5-5.1); Sodium 140 mmol/L (136-145)
[2018-08-10] MEDS ORDERED: ACETAMINOPHEN 325 MG TAB PO PRN (10:55)
[2018-08-10] MEDS ORDERED: LIDOCAINE HCL 5% OINT 30 GM TUBE EXT PRN (11:00)
--- NOTE | 2018-08-10 13:16 | Procedure Note ---
EEG Procedure Note Date of Service August 10, 2018 Start / End Times Start Time: 0800 End Time: 0825 Referring Physician Yamileth Monae MD History seizure question etoh withdrawal vs idiopathic epilepsy Home Medication List Home Medications Medication Instructions Recorded Confirmed Type No Known Home Medications 08/04/18 08/09/18 History Inpatient Medication List Folic Acid (Folvite) 1 mg PO QAM [facility] Stop: 09/09/18 08:59 Last Admin: 08/10/18 07:48 Dose: 1 mg Documented by: [id number] Gabapentin (Neurontin) 600 mg PO Q8H [facility] Stop: 08/10/18 22:01 Last Admin: 08/10/18 05:06 Dose: 600 mg Documented by: [id number] Lorazepam (Ativan) 1 mg in 2 mls @ 2 mls/min IV UD PRN; Protocol PRN Reason: EtOH Withdrawl AWSS Score 6,7 Stop: 09/08/18 02:17 Last Admin: 08/10/18 05:11 Dose: 2 mls/min Documented by: [id number] Admin: 08/09/18 23:55 Dose: 2 mls/min Documented by: [id number] Admin: 08/09/18 22:26 Dose: 2 mls/min Documented by: [id number] Pantoprazole Sodium 40 mg/ (Syringe) 10 mls @ 5 mls/min IV BID@0900,2100 [facility] Stop: 09/08/18 03:59 Last Admin: 08/10/18 07:51 Dose: 5 mls/min Documented by: [id number] Admin: 08/09/18 21:34 Dose: 5 mls/min Documented by: [id number] Admin: 08/09/18 05:02 Dose: 5 mls/min Documented by: [id number] Miscellaneous (Remove Nicoderm Patch) 1 ea N/A HS [facility] Stop: 09/08/18 20:59 Last Admin: 08/09/18 21:25 Dose: 1 ea Documented by: [id number] Multivitamins (Multivitamin Tab) 1 tab PO QAM [facility] Stop: 09/09/18 08:59 Last Admin: 08/10/18 07:48 Dose: 1 tab Documented by: [id number] Nicotine (Nicoderm Cq) 21 mg TD QAM [facility] Stop: 09/08/18 06:09 Last Admin: 08/10/18 07:47 Dose: 21 mg Documented by: [id number] Admin: 08/09/18 08:39 Dose: 21 mg Documented by: [id number] Sucralfate (Carafate) 1 gm PO QID [facility] Stop: 09/08/18 16:59 Last Admin: 08/10/18 07:47 Dose: 1 gm Documented by: [id number] Admin: 08/09/18 21:22 Dose: 1 gm Documented by: [id number] Admin: 08/09/18 17:00 Dose: 1 gm Documented by: [id number] Thiamine HCl (Vitamin B-1) 100 mg PO QAM [facility] Stop: 09/09/18 08:59 Last Admin: 08/10/18 07:48 Dose: 100 mg Documented by: [id number] Discontinued Medications Famotidine (Pepcid 20mg Iv Push) 20 mg IV ONE STA Stop: 08/09/18 02:09 Last Admin: 08/09/18 02:37 Dose: 20 mg Documented by: [id number] Gabapentin (Neurontin) 1,200 mg PO TODAY@0300 [facility] Stop: 08/09/18 03:01 Last Admin: 08/09/18 04:58 Dose: Not Given Documented by: [id number] Gabapentin (Neurontin) 600 mg PO Q6H [facility] Stop: 08/09/18 18:01 Last Admin: 08/09/18 17:00 Dose: 600 mg Documented by: [id number] Admin: 08/09/18 11:56 Dose: 600 mg Documented by: [id number] Gabapentin (Neurontin) 1,200 mg PO NOW STA Stop: 08/09/18 05:46 Last Admin: 08/09/18 06:00 Dose: 1,200 mg Documented by: [id number] Multivitamins 10 ml/ Thiamine HCl 100 mg/ Folic Acid 1 mg/Sodium Chloride 1,011.2 mls @ 1,011.2 mls/hr IV .Q1H [facility] Stop: 08/09/18 02:14 Last Infusion: 08/09/18 02:38 Dose: 0 mls/hr Documented by: [id number] Admin: 08/09/18 01:27 Dose: 1,011.2 mls/hr Documented by: [id number] Lorazepam (Ativan) 2 mg in 4 mls @ 4 mls/min IV NOW STA Stop: 08/09/18 01:05 Last Admin: 08/09/18 01:12 Dose: 4 mls/min Documented by: [id number] Lactated Ringer's (Lr) 1,000 mls @ 150 mls/hr IV .[id number] [facility] Stop: 09/08/18 05:35 Last Infusion: 08/09/18 16:53 Dose: 0 mls/hr Documented by: [id number] Admin: 08/09/18 15:13 Dose: 150 mls/hr Documented by: [id number] Infusion: 08/09/18 15:13 Dose: 150 mls/hr Documented by: [id number] Infusion: 08/09/18 10:25 Dose: 150 mls/hr Documented by: [id number] Admin: 08/09/18 06:00 Dose: 60 mls/hr Documented by: [id number] Lactated Ringer's (Lr) 1,000 mls @ 80 mls/hr IV .[id number] [facility] Stop: 09/08/18 15:59 Last Infusion: 08/10/18 10:57 Dose: 0 mls/hr Documented by: [id number] Admin: 08/09/18 23:56 Dose: 80 mls/hr Documented by: [id number] Infusion: 08/09/18 23:56 Dose: 80 mls/hr Documented by: [id number] Admin: 08/09/18 15:58 Dose: 80 mls/hr Documented by: [id number] Ioversol (Optiray 320 100ml) 94 ml IV ONCE PRN PRN Reason: Interaction Checking Stop: 08/13/18 12:29 Last Admin: 08/09/18 12:31 Dose: 94 ml Documented by: [id number] Oxycodone HCl (Roxicodone Immediate Rel) 5 mg PO Q4H PRN PRN Reason: Pain Stop: 08/23/18 05:35 Last Admin: 08/10/18 05:06 Dose: 5 mg Documented by: [id number] Admin: 08/09/18 21:33 Dose: 5 mg Documented by: [id number] Description This is a 21 electrode EEG with a single channel dedicated to limited EKG. The electrodes were placed in accordance with the International 10-20 system. This eeg was done during wakefulness and was affected at times by mnovement artefacts which were also recorded on simultaneous video recording Photic stimulation was obtained Hyperventilation was not. There is a normal and symmetrcal posterior alpha rhythmn a normal central theta and a normal anterior beta pattern without any evidence for potentially epileptogenic patterns Photic stimulation provokes no significant changes Interpretation Normal waking eeg Clinical Correlation Normal eeg without evidence for a focal or generalized encephalopathy or potentially epileptogenic patterns but the absence of the latter particularly on a very short recording does not exclude a seizure peg Brothers MD
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
[2018-08-11] MEDS ORDERED: GABAPENTIN 600 MG TAB PO SCH (10:00)
[2018-08-12 13:46] LABS: Hydrocodone Urine 140 NG/ML (CUTOFF=50); Hydromor Urine 207 NG/ML (CUTOFF=50); Marijuana Quant, GCMS Urine 216 NG/ML (CUTOFF=5); Morphine Urine NEGATIVE NG/ML (CUTOFF=50); Norhydrocodone Conf Ur 88 NG/ML (CUTOFF=50); Noroxycodone Urine NEGATIVE NG/ML (CUTOFF=50); Oxycodone Urine NEGATIVE NG/ML (CUTOFF=50)
[2018-08-12] MEDS ORDERED: GABAPENTIN 600 MG TAB PO SCH (22:00)
== END 2018-08-10 21:14 | disposition home or self-care (01) | DRG 897 ==
LOC: ED 00:44 → 1E 03:54 → 2N 18:22 → 4W 08-10 19:27

== ENCOUNTER 2018-11-12 17:27 | Inpatient (IN) ==
[2018-11-12] MEDS ORDERED: SODIUM CHLORIDE 0.9% 1000ML 1,000 ML IV ONE (18:02)
[2018-11-12] MEDS ORDERED: ONDANSETRON INJ 2 MG/ML 2 ML VIAL IV STA (18:02)
[2018-11-12] MEDS ORDERED: LORazepam 1 MG/2 ML VIAL IV STA (18:02)
[2018-11-12 18:22] LABS: Hematocrit (blood only) 45.9 % (42-52); Hemoglobin 16.6 g/dL (14.0-18.0); Mean Corpuscular Hgb Conc 36.2 g/dL (32-36); Mean Corpuscular Volume 88.4 fL (80-100); Platelet Count 384 K/uL (130-400); RDW Coefficient of Variation 15.3 % (11.5-14.5); RDW Standard Deviation 48.1 fL (36.4-46.3); Red Blood Count 5.19 M/uL (4.7-6.1); White Blood Count 25.46 K/uL (4.8-10.8)
[2018-11-12 18:40] LABS: Basophils # (auto) 0.04 K/uL (0-0.2); Basophils % (auto) 0.2 %; Immature Granulocytes # (auto) 0.11 K/uL (0.00-0.02); Immature Granulocytes % (auto) 0.4 %; Lymphocytes # (auto) 1.56 K/uL (1.2-3.4); Lymphocytes % (auto) 6.1 %; Monocytes # (auto) 1.95 K/uL (0.11-0.59); Monocytes % (auto) 7.7 %; Neutrophils % (auto) 85.6 %
[2018-11-12 18:41] LABS: Albumin Level 4.7 gm/dl (3.4-5.0); BUN Creatinine Ratio 14.4 (10-20); Calcium 10.5 mg/dl (8.5-10.1); Creatinine Clr Calc Pharmacy 96.2 ml/min; Est GFR (African American) 99.1; Est GFR (Non-African American) 85.5; Potassium 3.5 mmol/L (3.5-5.1)
[2018-11-12 18:44] LABS: Albumin Globulin Ratio 1.1 (0.9-2); Bilirubin,Total 0.5 mg/dl (0.2-1); Globulin 4.1 gm/dl (2.5-4.0); Total Protein 8.9 gm/dl (6.4-8.2)
--- NOTE | 2018-11-12 19:13 | XRay Report ---
XR chest 1V portable HISTORY: WBC elevated eval for aspiration pna COMPARISON: Chest 08/09/2018. FINDINGS: The lungs are clear. Cardiac silhouette is normal in size. No pleural effusions. No pneumot horax. IMPRESSION: No acute process. Electronically signed by: Patrick Goodson M.D. 11/12/2018 7:11 PM
[2018-11-12] MEDS ORDERED: MULTI-VITAMIN INFUSION 10 ML, THIAMINE HCL 100 MG, FOLIC ACID 1 MG in SODIUM CHLORIDE 0... IV STA (19:47)
[2018-11-12] MEDS ORDERED: GABAPENTIN 400 MG CAP PO STA (19:47)
[2018-11-12 20:12] LABS: Magnesium 1.5 mg/dl (1.8-2.4)
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
[2018-11-12 20:55] LABS: Thyroid Stimulating Hormone 0.469 uIu/ml (0.300-4.500)
[2018-11-12] MEDS ORDERED: IOVERSOL 100ml IV PRN (20:58)
--- NOTE | 2018-11-12 21:14 | CT Scan Report ---
ABDOMEN AND PELVIS CT WITH IV CONTRAST CT DOSE: 306.75 mGy.cm HISTORY: Generalized abdominal pain. TECHNIQUE: Multiaxial CT images of the abdomen and pelvis were performed following the use of intrave nous contrast. A dose lowering technique was utilized adhering to the principles of ALARA. COMPARISON STUDY: Abdomen and pelvis CT 08/09/2018. FINDINGS: The lung bases are clear. No pneumoperitoneum. No pneumatosis. No suspicious lytic or blast ic osseous lesions. Mild circumferential thickening of the distal esophagus. Questionable thickening within the proximal colon is likely due to underdistention. Otherwise, no bowel wall thickening or ob struction. Normal appendix. The bladder is unremarkable. No pelvic free fluid. Moderate well-formed s tool within the distal colon and rectum. The main portal vein is patent. No retroperitoneal lymphaden opathy. Normal caliber abdominal aorta. No hepatic or splenic masses. The gallbladder, pancreas, and left adrenal gland are unremarkable. Calcifications within the right adrenal gland. The kidneys enhan ce normally. No hydronephrosis. Borderline hepatic steatosis. IMPRESSION: 1. Questionable thickening of the proximal colon is likely due to underdistention. Otherwise, no demetria l wall thickening or obstruction. 2. Mild superficial thickening of the distal esophagus consistent with esophagitis. 3. Moderate well-formed stool within the distal colon and rectum. 4. Borderline hepatic steatosis. Electronically signed by: Patrick Goodson M.D. 11/12/2018 9:12 PM
[2018-11-12] MEDS ORDERED: POLYETHYLENE (MIRALAX) 17 GM PACK PO STA (21:18)
[2018-11-12] MEDS ORDERED: LORazepam 3 MG/6 ML VIAL IV PRN (21:24)
[2018-11-12] MEDS ORDERED: ATIVAN IV ALCOHOL WITHDRAWL IV SCH (21:24)
[2018-11-12] MEDS ORDERED: OXYCODONE HCL IR 5 MG TAB (IMMEDIATE RELEASE) PO PRN (21:24)
[2018-11-12] MEDS ORDERED: PROMETHAZINE HCL 12.5 MG in SODIUM CHLORIDE 0.9% 50 ML IV PRN (21:24)
[2018-11-12] MEDS ORDERED: GABAPENTIN 1200MG ALCOHOL WITHDRAWAL LOAD PO STA (21:24)
[2018-11-12] MEDS ORDERED: ACETAMINOPHEN 325 MG TAB PO PRN (21:24)
[2018-11-12] MEDS: PANTOprazole 40 MG TAB PO SCH (21:55)
[2018-11-12] MEDS: DOCUSATE SODIUM/SENNA 50/8.6MG TAB PO SCH (21:56)
[2018-11-12] MEDS: LORazepam 1 MG/2 ML VIAL IV PRN (22:21)
[2018-11-12] MEDS: MAGNESIUM SULFATE / D5W 1 GM/100 ML BAG IV SCH ×2 (22:35→23:32)
[2018-11-12] MEDS ORDERED: LACTATED RINGER'S 1,000 ML IV ONE (23:00)
--- NOTE | 2018-11-13 01:15 | Emergency Department Note ---
Entered by Demetra Beyer acting as a scribe for History of Present Illness General Chief complaint: Dehydration Stated complaint: DEHYDRATED, FEELS LIKE GOING INTO SEIZURE Source: patient and old records reviewed Mode of arrival: ambulatory Limitations: no limitations History of Present Illness Provider complaint: Alcohol withdrawal Onset (ago): hour(s) (today) Location: head Severity: similar to prior episodes Pain Consistency: + other (worsening) Quality: + other (alcohol withdrawal) Associated symptoms: + headaches, + nausea/vomiting and + other (Additional symptoms: shakiness. Denies: abdominal pain, suidical ideations) The patient is a 28 year old male with a history of alcohol withdrawal seizures and GERD who presents to the Emergency Room with complaints of worsening alcohol withdrawal starting this morning. The patient reports that he has been shaky, nauseous, and vomiting persistently since this morning. He adds that he has a headache but does not have abdominal pain. He states that his current symptoms feel like his old alcohol withdrawal seizures. He states he feels like he is going to have another seizure. Per the patient's medical records, the patient was most recently admitted for alcohol withdrawal symptoms on August 09. The patient recalls that he was off alcohol for 3-5 days before he experienced a seizure. His records indicate that he also had an alcohol withdrawal seizure in July 2016. The patient adds that he had a seizure secondary to physical head trauma in high school but has never been diagnosed with epilepsy. He notes that he currently drinks at least half a bottle of wine every day and last had some alcohol this morning to try and alleviate his symptoms. He expresses that he that he has a plan to stop drinking but is unsure if he wants to go to rehab after this. He states that he did not go to rehab after his last admission. He denies any suicidal ideations and reports that he has 5 hits of marijuana every day. Home Medications Home Medications Medication Instructions Recorded Confirmed Type No Known Home Medications 11/12/18 11/12/18 History Allergies Allergy/AdvReac Type Severity Reaction Status Date / Time No Known Allergies Allergy Verified 11/12/18 18:06 Past Med/Surg History Medical History Hematemesis ADHD (attention deficit hyperactivity disorder) (Chronic) Lyme disease (Acute) Alcohol abuse (Inactive) ADHD Anxiety HX OF Asthma A CHILD (NO CURRENT PROBLEMS) GERD (gastroesophageal reflux disease) Seizure 1 EVENT IN 2009 AFTER HEAD TRAUMA (HX 2 CONCUSSIONS) Surgical History History of tooth extraction Pilonidal cyst REMOVED Family History Other No significant family history Social History Preferred Language: Chadian Communication Ability: Effective 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 Beliefs That Will Affect Care: None marital status: Single Current Living Situation: Family current occupational status: employed Other Information That Helps Us Care for You: No Feels Safe at Home: Yes Safety Concerns: Feels Safe At This Time Smoking Status: Current every day smoker Tobacco Type: cigarettes ; Cigarettes Per Day: ADVISED TO NOT USE 8 HOURS BEFORE PROCEDURE ; Do You Dip or Chew Tobacco: No ; Second Hand Exposure: No ; Hx Alcohol Use: Yes Alcohol type: wine and hard liquor Alcohol type Comment: half a bottle of wine Alcohol Intake Frequency: Daily Hx Substance Use: Yes substance use type: marijuana Last Used Substance: Hours (ago) Review of Systems See HPI for pertinent positives & negatives. and A total of 10 systems reviewed and were otherwise negative Physical Exam Vital Signs Vital Signs - 24 hr 11/12/18 17:34 11/12/18 18:56 Temperature 36.3 C L Temperature Source Oral Sepsis Recent Fever Within 48 Hours No Sepsis New/Unexplained Change in Mental Status No Sepsis Action Taken by Nursing No Action Required Pulse Rate 107 H Pulse Rate [Left Finger] 80 Pulse Rhythm Regular Pulse Strength Normal Respiratory Rate 20 18 Respiratory Effort / Characteristics Non-Labored Spontaneous Respiratory Depth Normal Respiratory Pattern Regular Blood Pressure 128/79 Blood Pressure [Left Arm] 124/74 Blood Pressure Mean 95 Blood Pressure Mean [Left Arm] 90 Blood Pressure Position Sitting Pulse Oximetry 99 98 Oxygen Delivery Method Room Air Room Air Constitutional: Vital signs reviewed. Eyes: Pupils are equal round reactive to light. Conjunctiva are noninjected. ENT: Pharynx is clear without erythema or exudate. Mucous membranes are dry. Neck supple without meningeal signs. Respiratory: Clear to auscultation bilaterally. Breath sounds are equal bilaterally. Cardiovascular: Tachycardic rate and rhythm. No rubs or gallops. GI: Soft, nondistended and nontender. Bowel sounds are present. Musculoskeletal: No peripheral edema. No lower extremity tenderness. Integumentary: No cyanosis. Neurological: The patient is awake and alert. No focal deficits. Psychiatric: Anxious. Course 1752: The patient was evaluated in room C4, and a complete history and physical examination were performed. 1858: I checked on the patient. He feels much better now with no significant pain and an improved headache. I discussed his elevated white count with him, and he reported that he has not had any fevers. He concedes that he could have had a seizure while he was sleeping last night. The patient denies any trauma and head injury. 1914: I reviewed the patient's case with Dr. Chetan Saenz. Dr. Benton will evaluate the patient for further management. Consultations Consultation #1: I reviewed the patient's case with Dr. Chetan Saenz. Dr. Benton will evaluate the patient for further management. Time: 19:15 Administered Medications Lactated Ringer's (Lr) 1,000 mls @ 75 mls/hr IV .[id number] ONE Stop: 11/13/18 12:19 Last Admin: 11/12/18 23:02 Dose: 75 mls/hr Documented by: [id number] Lorazepam (Ativan) 1 mg in 2 mls @ 2 mls/min IV UD PRN; Protocol PRN Reason: EtOH Withdrawl AWSS Score 6,7 Stop: 12/12/18 21:23 Last Admin: 11/12/18 22:21 Dose: 2 mls/min Documented by: [id number] Ioversol (Optiray 320 100ml) 93 ml IV ONCE PRN PRN Reason: Interaction Checking Stop: 11/16/18 20:57 Last Admin: 11/12/18 20:59 Dose: 93 ml Documented by: [id number] Pantoprazole Sodium (Protonix) 40 mg PO BID MOLLY Stop: 12/12/18 21:29 Last Admin: 11/12/18 21:55 Dose: 40 mg Documented by: [id number] Senna/Docusate Sodium (Senokot S) 1 tab PO QAM MOLLY Stop: 12/12/18 21:19 Last Admin: 11/12/18 21:56 Dose: 1 tab Documented by: [id number] Discontinued Medications Gabapentin (Neurontin) 1,200 mg PO NOW STA Stop: 11/12/18 19:48 Last Admin: 11/12/18 20:23 Dose: 1,200 mg Documented by: [id number] Lorazepam (Ativan) 1 mg in 2 mls @ 2 mls/min IV NOW STA Stop: 11/12/18 18:03 Last Admin: 11/12/18 18:35 Dose: 2 mls/min Documented by: [id number] Sodium Chloride (Nss 1000ml) 1,000 mls @ 999 mls/hr IV .Q1H1M ONE Stop: 11/12/18 19:02 Last Infusion: 11/12/18 20:32 Dose: 0 mls/hr Documented by: [id number] Admin: 11/12/18 18:36 Dose: 999 mls/hr Documented by: [id number] Multivitamins 10 ml/ Thiamine HCl 100 mg/ Folic Acid 1 mg/Sodium Chloride 1,011.2 mls @ 500 mls/hr IV .Q2H2M STA Stop: 11/12/18 21:48 Last Infusion: 11/12/18 22:31 Dose: 0 mls/hr Documented by: [id number] Admin: 11/12/18 20:23 Dose: 500 mls/hr Documented by: [id number] Magnesium Sulfate/Dextrose (Magnesium Sulfate / D5w) 1 gm in 100 mls @ 100 mls/hr IV Q1H MOLLY Stop: 11/12/18 23:59 Last Infusion: 11/13/18 00:53 Dose: 0 mls/hr Documented by: [id number] Admin: 11/12/18 23:32 Dose: 100 mls/hr Documented by: [id number] Infusion: 11/12/18 23:32 Dose: 100 mls/hr Documented by: [id number] Admin: 11/12/18 22:35 Dose: 100 mls/hr Documented by: [id number] Ondansetron HCl (Zofran) 4 mg IV NOW STA Stop: 11/12/18 18:03 Last Admin: 11/12/18 18:36 Dose: 4 mg Documented by: [id number] Polyethylene Glycol (Miralax Powder Packet) 17 gm PO NOW STA Stop: 11/12/18 21:19 Last Admin: 11/12/18 21:56 Dose: 17 gm Documented by: [id number] Medical Decision Making Differential Diagnosis Differential diagnosis includes: alcohol abuse, marijuana abuse, alcohol withdrawal, dehydration, AKA Medical Records Attestation: I reviewed the patient's medical records. I did perform a limited focused review of portions of the patient's old chart on the electronic medical record. The patient was admitted on August 09 for alcohol withdrawal symptoms. He had a negative CT of the head at this time. He also has a history of alcohol withdrawal seizures in July 2016. He had a negative MRI and EEG at this time. Home Medications Current Medication List: was personally reviewed by me Laboratory Data Attestation: I reviewed the patient's lab results. Result diagrams: 11/12/18 17:55 11/12/18 17:55 Lab Results 11/12/18 11/12/18 11/12/18 Range/Units 17:55 17:55 17:55 WBC 25.46 H (4.8-10.8) K/uL RBC 5.19 (4.7-6.1) M/uL Hgb 16.6 (14.0-18.0) g/dL Hct 45.9 (42-52) % MCV 88.4 (80-100) fL MCH 32.0 (25-34) pg MCHC 36.2 H (32-36) g/dL RDW Std Deviation 48.1 H (36.4-46.3) fL RDW Coeff of Betina 15.3 H (11.5-14.5) % Plt Count 384 (130-400) K/uL MPV 9.0 (7.4-10.4) fL Immature Gran % (Auto) 0.4 % Neut % (Auto) 85.6 % Lymph % (Auto) 6.1 % [place] % (Auto) 7.7 % Eos % (Auto) 0.0 % Baso % (Auto) 0.2 % Immature Gran # (Auto) 0.11 H (0.00-0.02) K/uL Neut # (Auto) 21.80 H (1.4-6.5) K/uL Lymph # (Auto) 1.56 (1.2-3.4) K/uL [place] # (Auto) 1.95 H (0.11-0.59) K/uL Eos # (Auto) 0.00 (0-0.5) K/uL Baso # (Auto) 0.04 (0-0.2) K/uL Sodium 136 (136-145) mmol/L Potassium 3.5 (3.5-5.1) mmol/L Chloride 92 L (98-107) mmol/L Carbon Dioxide 25 (21-32) mmol/L Anion Gap 18.0 H (3-11) BUN 17 (7-18) mg/dl Creatinine 1.17 (0.6-1.4) mg/dl Est Cr Clr Drug Dosing 96.2 ml/min Est GFR ( Amer) 99.1 Est GFR (Non-Af Amer) 85.5 BUN/Creatinine Ratio 14.4 (10-20) Glucose 99 (70-99) mg/dl Calcium 10.5 H (8.5-10.1) mg/dl Magnesium 1.5 L (1.8-2.4) mg/dl Total Bilirubin 0.5 (0.2-1) mg/dl AST 53 H (15-37) U/L ALT 36 (12-78) U/L Alkaline Phosphatase 140 H (45-117) U/L Total Creatine Kinase 59 (39-308) U/L Total Protein 8.9 H (6.4-8.2) gm/dl Albumin 4.7 (3.4-5.0) gm/dl Globulin 4.1 H (2.5-4.0) gm/dl Albumin/Globulin Ratio 1.1 (0.9-2) Lipase 120 (73-393) U/L Procalcitonin 0.07 (0-0.5) ng/ml TSH 0.469 (0.300-4.500) uIu/ml Ethyl Alcohol mg/dL (0-3) mg/dl 11/12/18 Range/Units 18:30 WBC (4.8-10.8) K/uL RBC (4.7-6.1) M/uL Hgb (14.0-18.0) g/dL Hct (42-52) % MCV (80-100) fL MCH (25-34) pg MCHC (32-36) g/dL RDW Std Deviation (36.4-46.3) fL RDW Coeff of Betina (11.5-14.5) % Plt Count (130-400) K/uL MPV (7.4-10.4) fL Immature Gran % (Auto) % Neut % (Auto) % Lymph % (Auto) % [place] % (Auto) % Eos % (Auto) % Baso % (Auto) % Immature Gran # (Auto) (0.00-0.02) K/uL Neut # (Auto) (1.4-6.5) K/uL Lymph # (Auto) (1.2-3.4) K/uL [place] # (Auto) (0.11-0.59) K/uL Eos # (Auto) (0-0.5) K/uL Baso # (Auto) (0-0.2) K/uL Sodium (136-145) mmol/L Potassium (3.5-5.1) mmol/L Chloride (98-107) mmol/L Carbon Dioxide (21-32) mmol/L Anion Gap (3-11) BUN (7-18) mg/dl Creatinine (0.6-1.4) mg/dl Est Cr Clr Drug Dosing ml/min Est GFR ( Amer) Est GFR (Non-Af Amer) BUN/Creatinine Ratio (10-20) Glucose (70-99) mg/dl Calcium (8.5-10.1) mg/dl Magnesium (1.8-2.4) mg/dl Total Bilirubin (0.2-1) mg/dl AST (15-37) U/L ALT (12-78) U/L Alkaline Phosphatase (45-117) U/L Total Creatine Kinase (39-308) U/L Total Protein (6.4-8.2) gm/dl Albumin (3.4-5.0) gm/dl Globulin (2.5-4.0) gm/dl Albumin/Globulin Ratio (0.9-2) Lipase (73-393) U/L Procalcitonin (0-0.5) ng/ml TSH (0.300-4.500) uIu/ml Ethyl Alcohol mg/dL < 3.0 (0-3) mg/dl Imaging Data Radiologist's Impression: Radiology results as stated below per my review and the radiologist's interpretation: XR chest 1V portable HISTORY: WBC elevated eval for aspiration pna COMPARISON: Chest 08/09/2018. FINDINGS: The lungs are clear. Cardiac silhouette is normal in size. No pleural effusions. No pneumothorax. IMPRESSION: No acute process. Electronically signed by: Patrick Goodson M.D. 11/12/2018 7:11 PM Blood Pressure Blood Pressure Findings: Elevated blood pressure Blood Pressure Disposition: Referred to patients primary care provider BRADY Narrative I did evaluate the patient as noted above. The patient is presenting with symptoms consistent with alcohol withdrawal. He does have a prior history of significant withdrawal symptoms including seizures and was admitted to the hospital for this several months ago. IV access was established. 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 I did treat him with Ativan 1 mg IV. He was also given normal saline IV. I did order and personally reviewed the images of the patient's chest x-ray as described above. There is no evidence of pneumonia. I did order a urine analysis. I did order and review the patient's blood work as noted in the electronic medical record. Alcohol level is not detectable. There is no signs of alcoholic ketoacidosis. His magnesium is slightly low. His white blood cell count is significantly elevated. I did reassess the patient. He states he feels much better. His headache is almost gone. I did talk to him about his elevated white blood cell count. He denies having any fevers, cold symptoms or urinary complaints. I did ask if he possibly had a seizure at home and did not realize this. He states that it is possible. He was sleeping with his girlfriend last night but she was "passed out" and may not have noticed that he had a seizure during the night. He denies any trauma to his head. He will require further evaluation for his leukocytosis. I did discuss the case with the hospitalist and case liner. Impression & Plan Alcohol withdrawal, Leukocytosis, Hypomagnesemia Discharge Plan Visit Data *Final* Discharge Date/Time: 11/12/18 20:40 Chief Complaint: Dehydration Stated Complaint: DEHYDRATED, FEELS LIKE GOING INTO SEIZURE ED Provider: Tj Leung Discharge Problem: Alcohol withdrawal, Leukocytosis, Hypomagnesemia Patient Disposition: Admitted As Inpatient Discharge Instructions Interventions: ED Discharge Assessment Last Done: 11/12/18 20:40 Discharge Problem: Alcohol withdrawal Qualifiers: Complication of substance-induced condition: with unspecified complication Qualified Code(s): F10.239 - Alcohol dependence with withdrawal, unspecified Leukocytosis Qualifiers: Leukocytosis type: unspecified Qualified Code(s): D72.829 - Elevated white blood cell count, unspecified The scribe's documentation has been prepared under my direction and personally reviewed by me in its entirety. I confirm that the note above accurately reflects all work, treatment, procedures, and medical decision making performed by me.
[2018-11-13] MEDS: GABAPENTIN 600 MG TAB PO SCH ×3 (02:01→18:37)
[2018-11-13] MEDS: LORazepam 2 MG/4 ML VIAL IV PRN ×5 (03:37→21:05)
[2018-11-13 05:52] LABS: Appearance Urine Clear (Clear); Bilirubin Urine Negative (Negative); Blood Urine Negative (Negative); Color Urine Yellow; Glucose Urine UA Negative (Negative); Leukocyte Esterase Urine Negative (Negative); Nitrite Urine Negative (Negative); Protein Urine Negative (Negative); Specific Gravity Urine > 1.045 (1.000-1.030); Urobilinogen Urine Negative (Negative)
[2018-11-13 06:04] LABS: Ketones Urine 3+ (Negative)
[2018-11-13 06:11] LABS: Amphetamines+Metham, Urine Neg (Neg); Barbiturates, Urine Neg (Neg); Benzodiazepine, Urine Neg (Neg); Cocaine, Urine Neg (Neg); MDMA (Ecstacy), Urine Neg (Neg); Methadone, Urine Neg (Neg); Opiate, Urine Neg (Neg); Phencyclidine, Urine Neg (Neg)
[2018-11-13 06:36] LABS: Hematocrit (blood only) 36.5 % (42-52); Hemoglobin 12.7 g/dL (14.0-18.0); Mean Corpuscular Hemoglobin 30.3 pg (25-34); Mean Corpuscular Hgb Conc 34.8 g/dL (32-36); Mean Corpuscular Volume 87.1 fL (80-100); Mean Platelet Volume 8.7 fL (7.4-10.4); Platelet Count 230 K/uL (130-400); RDW Coefficient of Variation 15.1 % (11.5-14.5); RDW Standard Deviation 46.2 fL (36.4-46.3); Red Blood Count 4.19 M/uL (4.7-6.1); White Blood Count 8.49 K/uL (4.8-10.8)
[2018-11-13 06:57] LABS: BUN Creatinine Ratio 11.4 (10-20); Calcium 8.3 mg/dl (8.5-10.1); Creatinine Clr Calc Pharmacy 129.5 ml/min; Est GFR (African American) 144.4; Est GFR (Non-African American) 124.6; Magnesium 2.2 mg/dl (1.8-2.4); Potassium 3.9 mmol/L (3.5-5.1)
[2018-11-13 07:56] LABS: Basophils # (auto) 0.01 K/uL (0-0.2); Basophils % (auto) 0.1 %; Eosinophils # (auto) 0.01 K/uL (0-0.5); Eosinophils % (auto) 0.1 %; Immature Granulocytes # (auto) 0.01 K/uL (0.00-0.02); Immature Granulocytes % (auto) 0.1 %; Lymphocytes # (auto) 1.88 K/uL (1.2-3.4); Lymphocytes % (auto) 22.1 %; Monocytes % (auto) 10.6 %; Neutrophils # (auto) 5.68 K/uL (1.4-6.5); RBC Morphology Unremarkable
[2018-11-13] MEDS ORDERED: LORazepam 0.5 MG/1 ML VIAL IV PRN (08:11)
[2018-11-13] MEDS: LORazepam 1 MG/2 ML VIAL IV PRN (09:04)
[2018-11-13] MEDS: FOLIC ACID 1 MG TAB PO SCH (09:09)
[2018-11-13] MEDS: MULTIVITAMIN TAB PO SCH (09:10)
[2018-11-13] MEDS: DOCUSATE SODIUM/SENNA 50/8.6MG TAB PO SCH (09:11)
[2018-11-13] MEDS: PANTOprazole 40 MG TAB PO SCH ×2 (09:11→20:57)
[2018-11-13] MEDS: THIAMINE HCL 100 MG TAB PO SCH (09:11)
--- NOTE | 2018-11-13 09:50 | Hospitalist Progress Note ---
Date of Service November 13, 2018 Assessment & Plan (1) Alcohol withdrawal: Alcohol Withdrawal History of Alcohol Withdrawal Seizures continue Gabapentin Protocol monitor closely seizure precautions Abdominal pain secondary to constipation CT abdomen: 1. Questionable thickening of the proximal colon is likely due to underdistention. Otherwise, no bowel wall thickening or obstruction. 2. Mild superficial thickening of the distal esophagus consistent with esophagitis. 3. Moderate well-formed stool within the distal colon and rectum. 4. Borderline hepatic steatosis. -- laxatives ordered Malaise secondary to clinical dehydration - IV fluids Ongoing tobacco/alcohol abuse -- case management on board to transition to Alcohol Rehab ADD, not currently on medications History recent U GIB secondary to alcoholic gastritis/esophagitis status post PPI Rx - Protonix DVT prophylaxis. SCDs RE recent U GIB Full code Disposition case management on board to transition to Alcohol Rehab Subjective ff up for alcohol withdrawal symptoms seen resting in bed, comfortable states he feels somewhat anxious but denies tremors, hallucinations admits to feeling down, tearful lately due to family problems no abdominal pain, nausea/vomiting denies other symptoms Review of Systems Review of Systems: All systems reviewed & are unremarkable except as noted in HPI & below Physical Exam Physical Exam: General- oriented x 3, not in distress, speaks in sentences with no effort or accessory muscle use Head- atraumatic Eyes- PERRL, EOMI, anicteric ENT- oropharynx clear Neck- supple, no JVD, no adenopathy, no thyromegaly; carotids +2/2, no bruits appreciated Lungs- clear to auscultation bilaterally, no rales/wheezes Heart- normal rate, regular rhythm; no murmur, no gallop, no rub appreciated Abdomen- normal bowel sounds, nondistended, soft, nontender, no masses or hepatosplenomegaly Extremities- no pretibial edema, no calf tenderness; peripheral pulses intact Neuro- alert, oriented x 3; CN 2-12 grossly intact; motor 5/5 bilaterally;sensation 100% on all extremities; no other gross focal neurologic deficits Skin- warm & dry Results & Data Vital Signs (Past 12 Hours) Vital Signs Temp Pulse Pulse Resp BP BP Pulse Ox 11/13/18 07:13 36.7 C 92 H 18 119/76 98 11/13/18 06:22 80 11/13/18 03:40 37.2 C 107 H 21 119/71 96 11/12/18 23:00 36.8 C 20 138/76 98 11/12/18 22:51 36.8 C 90 16 117/76 99 Laboratory Results Laboratory Results - last 24 hr 11/12/18 11/12/18 11/12/18 17:55 17:55 17:55 WBC 25.46 H RBC 5.19 Hgb 16.6 Hct 45.9 MCV 88.4 MCH 32.0 MCHC 36.2 H RDW Std Deviation 48.1 H RDW Coeff of Betina 15.3 H Plt Count 384 MPV 9.0 Immature Gran % (Auto) 0.4 Neut % (Auto) 85.6 Lymph % (Auto) 6.1 [place] % (Auto) 7.7 Eos % (Auto) 0.0 Baso % (Auto) 0.2 Immature Gran # (Auto) 0.11 H Neut # (Auto) 21.80 H Lymph # (Auto) 1.56 [place] # (Auto) 1.95 H Eos # (Auto) 0.00 Baso # (Auto) 0.04 RBC Morphology Sodium 136 Potassium 3.5 Chloride 92 L Carbon Dioxide 25 Anion Gap 18.0 H BUN 17 Creatinine 1.17 Est Cr Clr Drug Dosing 96.2 Est GFR ( Amer) 99.1 Est GFR (Non-Af Amer) 85.5 BUN/Creatinine Ratio 14.4 Glucose 99 Calcium 10.5 H Magnesium 1.5 L Total Bilirubin 0.5 AST 53 H ALT 36 Alkaline Phosphatase 140 H Total Creatine Kinase 59 Total Protein 8.9 H Albumin 4.7 Globulin 4.1 H Albumin/Globulin Ratio 1.1 Lipase 120 Procalcitonin 0.07 TSH 0.469 Urine Color Urine Appearance Urine pH Ur Specific [place] Urine Protein Urine Glucose (UA) Urine Ketones Urine Blood Urine Nitrite Urine Bilirubin Urine Urobilinogen Ur Leukocyte Esterase Urine Opiates Screen Ur Methadone, Qual Urine Barbiturates Ur Phencyclidine (PCP) U Amphetamin/Meth Scrn MDMA (Ecstasy) Screen U Benzodiazepines Scrn Ur Cocaine Metabolite U Marijuana (THC) Screen U Marijuana THC Carboxy Ethyl Alcohol mg/dL 11/12/18 11/13/18 11/13/18 18:30 05:56 05:56 WBC 8.49 D RBC 4.19 L Hgb 12.7 L D Hct 36.5 L MCV 87.1 MCH 30.3 MCHC 34.8 RDW Std Deviation 46.2 RDW Coeff of Betina 15.1 H Plt Count 230 MPV 8.7 Immature Gran % (Auto) 0.1 Neut % (Auto) 67.0 Lymph % (Auto) 22.1 [place] % (Auto) 10.6 Eos % (Auto) 0.1 Baso % (Auto) 0.1 Immature Gran # (Auto) 0.01 Neut # (Auto) 5.68 Lymph # (Auto) 1.88 [place] # (Auto) 0.90 H Eos # (Auto) 0.01 Baso # (Auto) 0.01 RBC Morphology Unremarkable Sodium 137 Potassium 3.9 Chloride 101 Carbon Dioxide 30 Anion Gap 6.0 BUN 9 D Creatinine 0.78 D Est Cr Clr Drug Dosing 129.5 Est GFR ( Amer) 144.4 Est GFR (Non-Af Amer) 124.6 BUN/Creatinine Ratio 11.4 Glucose 90 Calcium 8.3 L D Magnesium 2.2 Total Bilirubin AST ALT Alkaline Phosphatase Total Creatine Kinase Total Protein Albumin Globulin Albumin/Globulin Ratio Lipase Procalcitonin TSH Urine Color Urine Appearance Urine pH Ur Specific [place] Urine Protein Urine Glucose (UA) Urine Ketones Urine Blood Urine Nitrite Urine Bilirubin Urine Urobilinogen Ur Leukocyte Esterase Urine Opiates Screen Ur Methadone, Qual Urine Barbiturates Ur Phencyclidine (PCP) U Amphetamin/Meth Scrn MDMA (Ecstasy) Screen U Benzodiazepines Scrn Ur Cocaine Metabolite U Marijuana (THC) Screen U Marijuana THC Carboxy Ethyl Alcohol mg/dL < 3.0 11/13/18 11/13/18 11/13/18 Unknown Unknown Unknown WBC RBC Hgb Hct MCV MCH MCHC RDW Std Deviation RDW Coeff of Betina Plt Count MPV Immature Gran % (Auto) Neut % (Auto) Lymph % (Auto) [place] % (Auto) Eos % (Auto) Baso % (Auto) Immature Gran # (Auto) Neut # (Auto) Lymph # (Auto) [place] # (Auto) Eos # (Auto) Baso # (Auto) RBC Morphology Sodium Potassium Chloride Carbon Dioxide Anion Gap BUN Creatinine Est Cr Clr Drug Dosing Est GFR ( Amer) Est GFR (Non-Af Amer) BUN/Creatinine Ratio Glucose Calcium Magnesium Total Bilirubin AST ALT Alkaline Phosphatase Total Creatine Kinase Total Protein Albumin Globulin Albumin/Globulin Ratio Lipase Procalcitonin TSH Urine Color Yellow Urine Appearance Clear Urine pH 5.0 Ur Specific [place] > 1.045 H Urine Protein Negative Urine Glucose (UA) Negative Urine Ketones 3+ H Urine Blood Negative Urine Nitrite Negative Urine Bilirubin Negative Urine Urobilinogen Negative Ur Leukocyte Esterase Negative Urine Opiates Screen Neg Ur Methadone, Qual Neg Urine Barbiturates Neg Ur Phencyclidine (PCP) Neg U Amphetamin/Meth Scrn Neg MDMA (Ecstasy) Screen Neg U Benzodiazepines Scrn Neg Ur Cocaine Metabolite Neg U Marijuana (THC) Screen Pos H U Marijuana THC Carboxy Pending Ethyl Alcohol mg/dL (1) Alcohol withdrawal Complication of substance-induced condition: with unspecified complication Qualified Code(s): F10.239 - Alcohol dependence with withdrawal, unspecified
[2018-11-13] MEDS: NICOTINE 21 MG/24 HR TDSY TD SCH (10:58)
--- NOTE | 2018-11-13 12:36 | Psychiatric Consultation ---
Date of Consultation November 13, 2018 Impression / Recommendations Impression 28 yo male with ETOH dependence, recurrent admission for detox and hx of withdrawal seizures. He has not participated in any level of D&A treatment which would make me hesitant to recommend naltrexone 50 mg. He is pretty clear not here because he wanted rehab placement. He stated he would accept information re: D&A providers (ha, tiffany), liaison updated. Risk Factors Assessment Do You Have Access To A Gun?: No Psych History Identifying Data 28 yo male lives with parents in [place]. Chief Complaint "I just didn't want to have more seizures". History of Present Illness Doc states that he's been trying to cut back on drinking lately, mainly as girlfriend tells him he's laying around too much. He essentially denies anxiety and depression at baseline, mainly describes drinking to deal with restlessness related to withdrawal. He only stayed sober for 2-3 days after last hospital stay in July. He states he had his first withdrawal seizure in July 2016. He's also been seen by neurology and been worked up for significant esophagitis. He denies self-medicating. He hasn't felt as much like doing things lately but attributes it to having more seizure activity (?jaw clenching at night). He states that these spells are interfering with his ability to work at [employer] but stated that a resident there accused him of coming to work high (denies he was) and he doesn't want to have to deal with that. Past Psychiatric History Previous Psych History: denied though dx of ADHD on chart, checked PDMP, no stimulant Rx Current Psychiatric Diagnosis: none Previous Psych Admissions: denied Do You Have Access To A Gun?: No History of Previous Suicide Attempt: No Past Medication Trials: denied Allergies Allergy/AdvReac Type Severity Reaction Status Date / Time No Known Allergies Allergy Verified 11/12/18 18:06 Home Medications Home Medications Medication Instructions Recorded Confirmed Type No Known Home Medications 11/12/18 11/12/18 History Family History brother Reyna, had liver disease to point of jaundice before stopping per patient report. 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 Required: No Beliefs That Will Affect Care: None marital status: Single Current Living Situation: Family current occupational status: employed Other Information That Helps Us Care for You: No Feels Safe at Home: Yes Safety Concerns: Feels Safe At This Time Smoking Status: Current every day smoker Tobacco Type: cigarettes ; Cigarettes Per Day: ADVISED TO NOT USE 8 HOURS BEFORE PROCEDURE ; Do You Dip or Chew Tobacco: No ; Second Hand Exposure: No ; Hx Alcohol Use: Yes Alcohol type: wine and hard liquor Alcohol type Comment: half a bottle of wine Alcohol Intake Frequency: Daily Hx Substance Use: Yes substance use type: marijuana Last Used Substance: Hours (ago) Physical Exam Psychiatric: The patient presented as alert and cooperative. The patient was casually groomed. Eye contact was fair. No psychomotor restlessness or agitation was noted. Speech was normal in rate, rhythm, and volume. Affect was mood congruent. The patients mood appeared euthymic. Thought processes were clear, coherent and goal directed without evidence of loose associations or flight of ideas. Thought content/perception was reality based without delusions. The patient denied suicidal and homicidal ideation. The patient denied hallucinations and did not appear to be responding to internal stimuli. Cognition was grossly intact with orientation to person, place and time. Vital Signs (Past 24 Hours): Last Vital Signs Temp 36.5 C 11/13/18 11:11 Pulse 106 H 11/13/18 11:11 Resp 18 11/13/18 11:11 BP 119/83 11/13/18 11:11 Pulse Ox 95 11/13/18 11:11 Review of Systems All systems reviewed & are unremarkable except as noted in HPI & below Results & Data Medications Administered Folic Acid (Folvite) [facility] [place] Stop: 12/13/18 08:59 Last Admin: 11/13/18 09:09 Dose: 1 mg Documented by: [id number] Lorazepam (Ativan) 1 mg in 2 mls @ 0.5 mls/min IV Q10M PRN PRN Reason: seizures Stop: 12/12/18 21:17 Last Admin: 11/13/18 09:04 Dose: 0.5 mls/min Documented by: [id number] Lorazepam (Ativan) 2 mg in 4 mls @ 4 mls/min IV UD PRN; Protocol PRN Reason: EtOH Withdrawl AWSS Score 8,9 Stop: 12/12/18 21:23 Last Admin: 11/13/18 11:43 Dose: 4 mls/min Documented by: [id number] Admin: 11/13/18 06:31 Dose: 4 mls/min Documented by: [id number] Admin: 11/13/18 03:37 Dose: 4 mls/min Documented by: [id number] Lorazepam (Ativan) 1 mg in 2 mls @ 2 mls/min IV UD PRN; Protocol PRN Reason: EtOH Withdrawl AWSS Score 6,7 Stop: 12/12/18 21:23 Last Admin: 11/12/18 22:21 Dose: 2 mls/min Documented by: [id number] Ioversol (Optiray 320 100ml) 93 ml IV ONCE PRN PRN Reason: Interaction Checking Stop: 11/16/18 20:57 Last Admin: 11/12/18 20:59 Dose: 93 ml Documented by: [id number] Multivitamins (Multivitamin Tab) 1 tab PO QAM MOLLY Stop: 12/13/18 08:59 Last Admin: 11/13/18 09:10 Dose: 1 tab Documented by: [id number] Nicotine (Nicoderm Cq) 21 mg TD QAM MOLLY Stop: 12/13/18 09:14 Last Admin: 11/13/18 10:58 Dose: 21 mg Documented by: [id number] Pantoprazole Sodium (Protonix) 40 mg PO BID MOLLY Stop: 12/12/18 21:29 Last Admin: 11/13/18 09:11 Dose: 40 mg Documented by: [id number] Admin: 11/12/18 21:55 Dose: 40 mg Documented by: [id number] Senna/Docusate Sodium (Senokot S) 1 tab PO [facility] Stop: 12/12/18 21:19 Last Admin: 11/13/18 09:11 Dose: 1 tab Documented by: [id number] Admin: 11/12/18 21:56 Dose: 1 tab Documented by: [id number] Thiamine HCl (Vitamin B-1) 100 mg PO [facility] Stop: 12/13/18 08:59 Last Admin: 11/13/18 09:11 Dose: 100 mg Documented by: [id number]
[2018-11-13] MEDS ORDERED: Nursing to Pharmacy Communication ONE (15:13)
[2018-11-13] MEDS: LACTATED RINGER'S 1,000 ML IV SCH (15:25)
[2018-11-14] MEDS: LORazepam 2 MG/4 ML VIAL IV PRN ×7 (00:06→18:32)
[2018-11-14] MEDS: GABAPENTIN 600 MG TAB PO SCH ×3 (00:12→20:11)
[2018-11-14] MEDS: LACTATED RINGER'S 1,000 ML IV SCH ×3 (01:39→21:05)
[2018-11-14] MEDS: LORazepam 1 MG/2 ML VIAL IV PRN ×2 (06:25→20:22)
[2018-11-14] MEDS: FOLIC ACID 1 MG TAB PO SCH (08:23)
[2018-11-14] MEDS: DOCUSATE SODIUM/SENNA 50/8.6MG TAB PO SCH (08:23)
[2018-11-14] MEDS: PANTOprazole 40 MG TAB PO SCH ×2 (08:23→20:12)
[2018-11-14] MEDS: MULTIVITAMIN TAB PO SCH (08:24)
[2018-11-14] MEDS: THIAMINE HCL 100 MG TAB PO SCH (08:24)
[2018-11-14] MEDS: NICOTINE 21 MG/24 HR TDSY TD SCH (08:25)
--- NOTE | 2018-11-14 17:14 | Hospitalist Progress Note ---
Date of Service November 14, 2018 Assessment & Plan (1) Alcohol withdrawal: Alcohol Withdrawal History of Alcohol Withdrawal Seizures has mild withdrawal symptoms, no DTs continue Gabapentin Protocol monitor closely seizure precautions Possible Depression Symptoms Psych consulted, recommendations noted discussed with RN, will request Psych liaison to speak with patient again today he denied suicidality Abdominal pain secondary to constipation CT abdomen: 1. Questionable thickening of the proximal colon is likely due to underdistention. Otherwise, no bowel wall thickening or obstruction. 2. Mild superficial thickening of the distal esophagus consistent with esophagitis. 3. Moderate well-formed stool within the distal colon and rectum. 4. Borderline hepatic steatosis. -- laxatives ordered Malaise secondary to clinical dehydration - IV fluids Ongoing tobacco/alcohol abuse -- case management on board to transition to Alcohol Rehab ADD, not currently on medications History recent UGIB secondary to alcoholic gastritis/esophagitis status post PPI Rx - Protonix DVT prophylaxis. SCDs RE recent U GIB Full code Disposition case management on board to transition to Alcohol Rehab Subjective ff up for alcohol withdrawal seen resting in bed, sitting up comfortable not in distress admits to anxiety, episode of hallucination earlier today noted to have tremors, tachycardia earlier denies headache, shortness of breath, chest pain, abdominal pain became tearful during interview, said it's because of his family problems denies suicidality reassured patient, he seemed to have improved and stopped being tearful denies other symptom Review of Systems Review of Systems: All systems reviewed & are unremarkable except as noted in HPI & below Physical Exam Physical Exam: General- oriented x 3, not in distress, speaks in sentences with no effort or accessory muscle use Eyes- anicteric Neck- no JVD Lungs- clear BS BL no rales/wheezes Heart- normal rate, regular rhythm; no murmurs Abdomen- normal bowel sounds, nondistended, soft, nontender Extremities- no pretibial edema, no calf tenderness Neuro- alert, oriented x 3; no gross focal neurologic deficits Skin- warm & dry Results & Data Vital Signs (Past 12 Hours) Vital Signs Temp Pulse Resp BP BP Pulse Ox 11/14/18 14:57 36.7 C 82 18 125/84 98 11/14/18 10:59 36.7 C 90 17 127/85 98 11/14/18 09:34 36.8 C 110 H 22 131/93 96 11/14/18 07:22 36.6 C 65 18 126/82 98 (1) Alcohol withdrawal Complication of substance-induced condition: with unspecified complication Qualified Code(s): F10.239 - Alcohol dependence with withdrawal, unspecified
[2018-11-14] MEDS: POLYETHYLENE (MIRALAX) 17 GM PACK PO PRN (18:31)
[2018-11-15] MEDS: LORazepam 0.5 MG TAB PO PRN ×2 (03:20→15:51)
[2018-11-15] MEDS: LORazepam 1 MG/2 ML VIAL IV PRN ×4 (06:55→23:54)
[2018-11-15] MEDS: LACTATED RINGER'S 1,000 ML IV SCH ×2 (06:56→17:00)
[2018-11-15] MEDS: PANTOprazole 40 MG TAB PO SCH ×2 (07:28→21:00)
[2018-11-15] MEDS: GABAPENTIN 600 MG TAB PO SCH (07:28)
[2018-11-15] MEDS: FOLIC ACID 1 MG TAB PO SCH (07:29)
[2018-11-15] MEDS: NICOTINE 21 MG/24 HR TDSY TD SCH (07:29)
[2018-11-15] MEDS: DOCUSATE SODIUM/SENNA 50/8.6MG TAB PO SCH (07:29)
[2018-11-15] MEDS: THIAMINE HCL 100 MG TAB PO SCH (07:29)
[2018-11-15] MEDS: MULTIVITAMIN TAB PO SCH (07:29)
[2018-11-15] MEDS: POLYETHYLENE (MIRALAX) 17 GM PACK PO PRN (15:33)
--- NOTE | 2018-11-15 16:40 | Hospitalist Progress Note ---
Date of Service November 15, 2018 Assessment & Plan (1) Alcohol withdrawal: Alcohol Withdrawal History of Alcohol Withdrawal Seizures symptoms resolving continue Gabapentin Protocol monitor closely seizure precautions Possible Depression Symptoms Psych consulted, recommendations noted improving will request ff up eval by Psych [facility] tomorrow Abdominal pain secondary to constipation CT abdomen: 1. Questionable thickening of the proximal colon is likely due to underdistention. Otherwise, no bowel wall thickening or obstruction. 2. Mild superficial thickening of the distal esophagus consistent with esophagitis. 3. Moderate well-formed stool within the distal colon and rectum. 4. Borderline hepatic steatosis. -- laxatives ordered Malaise secondary to clinical dehydration resolved Ongoing tobacco/alcohol abuse -- nicotine patch -- case management on board to transition to Alcohol Rehab ADD, not currently on medications History recent UGIB secondary to alcoholic gastritis/esophagitis status post PPI Rx - Protonix DVT prophylaxis. SCDs RE recent U GIB Full code Disposition case management on board to transition to Alcohol Rehab Subjective ff up for alcohol withdrawal seen resting in bed, comfortable states he feels that he continues to improve less anxious/tremors, no sweats/hallucinations gets emotional when talking about anxiety reassured denies feeling depressed, suicidality no other symptoms Review of Systems Review of Systems: All systems reviewed & are unremarkable except as noted in HPI & below Physical Exam Physical Exam: General- oriented x 3, not in distress, speaks in sentences with no effort or accessory muscle use Eyes- anicteric Neck- no JVD Lungs- clear breath sounds, no crackles, no wheezing Heart- normal rate, regular rhythm; no murmurs Abdomen- normal bowel sounds, nondistended, soft, nontender Extremities- no pretibial edema, no calf tenderness no tremors Neuro- alert, oriented x 3; no gross focal neurologic deficits Skin- warm & dry Results & Data Vital Signs (Past 12 Hours) Vital Signs Temp Pulse Pulse Resp BP BP Pulse Ox 11/15/18 15:10 36.7 C 76 17 129/90 100 11/15/18 11:28 36.7 C 111 H 17 127/83 99 11/15/18 09:07 36.4 C L 121 H 18 129/90 11/15/18 08:00 88 11/15/18 07:11 36.7 C 87 17 113/80 100 11/15/18 06:40 37.1 C 92 H 14 135/84 96 (1) Alcohol withdrawal Complication of substance-induced condition: with unspecified complication Qualified Code(s): F10.239 - Alcohol dependence with withdrawal, unspecified
[2018-11-16] MEDS: LORazepam 1 MG/2 ML VIAL IV PRN (05:00)
[2018-11-16] MEDS ORDERED: GABAPENTIN 600 MG TAB PO SCH (08:00)
[2018-11-16] MEDS: PANTOprazole 40 MG TAB PO SCH (08:41)
[2018-11-16] MEDS: DOCUSATE SODIUM/SENNA 50/8.6MG TAB PO SCH (08:41)
[2018-11-16] MEDS: FOLIC ACID 1 MG TAB PO SCH (08:41)
[2018-11-16] MEDS: THIAMINE HCL 100 MG TAB PO SCH (08:41)
[2018-11-16] MEDS: MULTIVITAMIN TAB PO SCH (08:42)
[2018-11-16] MEDS: NICOTINE 21 MG/24 HR TDSY TD SCH (08:43)
[2018-11-16 11:22] VITALS: PULSE 85; TEMP 97.5; O2SAT 99
--- NOTE | 2018-11-16 14:54 | Hospitalist Progress Note ---
Date of Service November 16, 2018 Assessment & Plan (1) Alcohol withdrawal: Alcohol Withdrawal History of Alcohol Withdrawal Seizures symptoms resolved completed Gabapentin protocol, as part of Alcohol Withdrawal Protocol patient declined Alcohol Rehab at this time strongly advised re: alcohol, smoking, illicit drug cessation and he verbalized understanding and agreement discussed that he will be reported to [facility] in light of Alcoholism, Alcohol Withdrawals, etc. and he verbalized understanding and agreement Possible Depression Symptoms Psych consulted- Dr. Vital does not feel patient has underlying depression or anxiety disorder at this time continue to monitor and follow up as outpatient Abdominal pain secondary to constipation CT abdomen: 1. Questionable thickening of the proximal colon is likely due to underd istention. Otherwise, no bowel wall thickening or obstruction. 2. Mild superficial thickening of the distal esophagus consistent with esophagitis. 3. Moderate well-formed stool within the distal colon and rectum. 4. Borderline hepatic steatosis. -- laxatives ordered resolved Malaise secondary to clinical dehydration resolved Ongoing tobacco/alcohol abuse -- nicotine patch given -- case management on board to transition to Alcohol Rehab--> patient declines at this time after discussions with him strongly advised re: alcohol, smoking, illicit drug cessation and he verbalized understanding and agreement declines Nicotine Patch ADD not currently on medications History recent UGIB secondary to alcoholic gastritis/esophagitis - given Protonix - recommend Prilosec daily plan of care discussed with patient in detail and at length all questions answered he is agreeable and comfortable with plan of care Disposition case management on board to transition to Alcohol Rehab Subjective ff up for alcohol withdrawal seen resting in bed, comfortable in good spirits states he feels much better overall denies anxiety, depression no headache, dizziness, chest pain, palpitations, abdominal pain no other symptoms states he is ready and would like to be discharged today Review of Systems Review of Systems: All systems reviewed & are unremarkable except as noted in HPI & below Physical Exam Physical Exam: General- oriented x 3, not in distress, speaks in sentences with no effort or accessory muscle use Eyes- anicteric Neck- no JVD Lungs- clear breath sounds, no crackles, no wheezing Heart- normal rate, regular rhythm; no murmurs Abdomen- normal bowel sounds, nondistended, soft, nontender Extremities- no pretibial edema, no calf tenderness no tremors Neuro- alert, oriented x 3; no gross focal neurologic deficits Skin- warm & dry Results & Data Vital Signs (Past 12 Hours) Vital Signs Temp Pulse Pulse Resp BP BP Pulse Ox 11/16/18 11:21 36.4 C L 85 17 113/74 99 11/16/18 07:30 82 11/16/18 07:14 36.8 C 78 17 113/72 97 11/16/18 04:00 36.6 C 107 H 20 129/94 98 (1) Alcohol withdrawal Complication of substance-induced condition: with unspecified complication Qualified Code(s): F10.239 - Alcohol dependence with withdrawal, unspecified
[2018-11-16 15:15] LABS: Basophils # (auto) 0.02 K/uL (0-0.2); Basophils % (auto) 0.3 %; Eosinophils # (auto) 0.17 K/uL (0-0.5); Eosinophils % (auto) 2.7 %; Hematocrit (blood only) 41.6 % (42-52); Hemoglobin 14.7 g/dL (14.0-18.0); Immature Granulocytes # (auto) 0.01 K/uL (0.00-0.02); Immature Granulocytes % (auto) 0.2 %; Lymphocytes # (auto) 2.41 K/uL (1.2-3.4); Lymphocytes % (auto) 38.6 %; Mean Corpuscular Volume 87.8 fL (80-100); Monocytes # (auto) 0.57 K/uL (0.11-0.59); Monocytes % (auto) 9.1 %; Neutrophils # (auto) 3.07 K/uL (1.4-6.5); Neutrophils % (auto) 49.1 %; Platelet Count 230 K/uL (130-400); RDW Coefficient of Variation 14.9 % (11.5-14.5); RDW Standard Deviation 47.4 fL (36.4-46.3); Red Blood Count 4.74 M/uL (4.7-6.1); White Blood Count 6.25 K/uL (4.8-10.8)
--- NOTE | 2018-11-16 15:16 | Discharge Summary ---
Date of Service November 16, 2018 Admission HPI Per Admitting Provider Doc states that he's been trying to cut back on drinking lately, mainly as girlfriend tells him he's laying around too much. He essentially denies anxiety and depression at baseline, mainly describes drinking to deal with restlessness related to withdrawal. He only stayed sober for 2-3 days after last hospital stay in July. He states he had his first withdrawal seizure in July 2016. He's also been seen by neurology and been worked up for significant esophagitis. He denies self-medicating. He hasn't felt as much like doing things lately but attributes it to having more seizure activity (?jaw clenching at night). He states that these spells are interfering with his ability to work at [employer] but stated that a resident there accused him of coming to work high (denies he was) and he doesn't want to have to deal with that. Admission Exam Per Admitting Provider GENERAL: Comfortable, wane, stretcher born lying on the right lateral decubitus position, no respiratory distress SKIN: Pallor, warm HEENT: Pale palpebral conjunctivae, no ptosis, dry buccal mucosa NECK : Supple, no tenderness CHEST : CTA, no tenderness HEART : RRR, no obvious murmurs ABDOMEN: Some tenderness, nonspecific tenderness on deep palpation EXTREMITIES : No LE swelling/tenderness, no other conspicuous deformities noted NEUROLOGIC : Coherent, no facial asymmetry, no other gross focality Principal Diagnosis Alcohol withdrawal Discharge Exam General- oriented x 3, not in distress, speaks in sentences with no effort or accessory muscle use Eyes- anicteric Neck- no JVD Lungs- clear breath sounds, no crackles, no wheezing Heart- normal rate, regular rhythm; no murmurs Abdomen- normal bowel sounds, nondistended, soft, nontender Extremities- no pretibial edema, no calf tenderness no tremors Neuro- alert, oriented x 3; no gross focal neurologic deficits Skin- warm & dry Discharge Data Allergies Allergy/AdvReac Type Severity Reaction Status Date / Time No Known Allergies Allergy Verified 11/12/18 18:06 Consultations 11/12/18 19:01 ED Decision to Admit Stat 11/12/18 21:24 Consult Case Management - Discharge Planning Routine 11/13/18 09:48 Consult Psychiatry Routine Ordered Studies 11/12/18 20:12 CT abd pelvis IV con only Urgent ABDOMEN AND PELVIS CT WITH IV CONTRAST CT DOSE: 306.75 mGy.cm HISTORY: Generalized abdominal pain. TECHNIQUE: Multiaxial CT images of the abdomen and pelvis were performed following the use of intravenous contrast. A dose lowering technique was utilized adhering to the principles of ALARA. COMPARISON STUDY: Abdomen and pelvis CT 08/09/2018. FINDINGS: The lung bases are clear. No pneumoperitoneum. No pneumatosis. No suspicious lytic or blastic osseous lesions. Mild circumferential thickening of the distal esophagus. Questionable thickening within the proximal colon is likel y due to underdistention. Otherwise, no bowel wall thickening or obstruction. Normal appendix. The bladder is unremarkable. No pelvic free fluid. Moderate well-formed stool within the distal colon and rectum. The main portal vein is patent. No retroperitoneal lymphadenopathy. Normal caliber abdominal aorta. No hepatic or splenic masses. The gallbladder, pancreas, and left adrenal gland are unremarkable. Calcifications within the right adrenal gland. The kidneys enhance normally. No hydronephrosis. Borderline hepatic steatosis. IMPRESSION: 1. Questionable thickening of the proximal colon is likely due to underdistention. Otherwise, no bowel wall thickening or obstruction. 2. Mild superficial thickening of the distal esophagus consistent with esophagitis. 3. Moderate well-formed stool within the distal colon and rectum. 4. Borderline hepatic steatosis. Hospital Course (1) Alcohol withdrawal: Alcohol Withdrawal History of Alcohol Withdrawal Seizures symptoms resolved completed Gabapentin protocol, as part of Alcohol Withdrawal Protocol patient declined Alcohol Rehab at this time strongly advised re: alcohol, smoking, illicit drug cessation and he verbalized understanding and agreement discussed that he will be reported to [facility] in light of Alcoholism, Alcohol Withdrawals, etc. and he verbalized understanding and agreement Will need to follow-up with [facility] neurologist Dr. Hu in 1 to 2 weeks Psych consulted- Dr. Vital does not feel patient has underlying depression or anxiety disorder at this time continue to monitor and follow up as outpatient Abdominal pain secondary to constipation CT abdomen: 1. Questionable thickening of the proximal colon is likely due to underdistention. Otherwise, no bowel wall thickening or obstruction. 2. Mild superficial thickening of the distal esophagus consistent with esophagitis. 3. Moderate well-formed stool within the distal colon and rectum. 4. Borderline hepatic steatosis. -- laxatives ordered resolved Malaise secondary to clinical dehydration resolved Ongoing tobacco/alcohol abuse -- nicotine patch given -- case management on board to transition to Alcohol Rehab--> patient declines at this time after discussions with him strongly advised re: alcohol, smoking, illicit drug cessation and he verbalized understanding and agreement declines Nicotine Patch ADD not currently on medications History recent UGIB secondary to alcoholic gastritis Esophagitis - given Protonix - recommend Prilosec daily Monitor and follow-up as an outpatient plan of care discussed with patient in detail and at length all questions answered he is agreeable and comfortable with plan of care Disposition Discharge to home Follow-up with primary care physician next week Dr. Pratt Thursday, November 22, 2018 Follow-up with the neurologist Dr. Hu in 1-2 weeks Total Time Total Time Spent Total Time Spent (In Minutes): 50 minutes Discharge Plan Discharge Items Patient Disposition: Home - Self-Care Reason For Visit: ETOH WITHDRAWL Discharge Diagnosis: Alcohol withdrawal Discharge Goals: Diagnostic testing and Therapeutic intervention Activity: As commented below Activity Comment: Resume activity gradually as tolerated, no heavy exertion Lifting: Wait until after follow-up appointment Exercise/Sports: Wait until after follow-up appointment Driving/Machine Use Comment: No driving until cleared by [employer] Non-emergency contact: Primary Care Provider Call non-emergency contact if: you have any medication questions and you have a fever Follow-up/Referrals: PCP,NO [Primary Care Provider] - Diet: Regular Addtl Provider Instructions: Follow-up with [facility] primary care physician at [facility], Dr. Pratt on November 22 a.m. Address: [address] [place] [id number] Phone: If with financial constraints, you may establish with a primary care physician at: Address: [address] [place] [id number] Follow-up with [facility] neurologist Dr. Yamileth Monae in 1 to 2 weeks. [facility] - Neurology [address] [place] [address] Follow-up with primary care physician within 1 week. Return to ER immediately if with recurrence of symptoms, including tremors, palpitations, sweating, hallucinations, increased anxiety or depression. No alcohol/smoking. Always drink plenty fluids. Prescriptions: New multivitamin [Daily-Charlie] Tablet 1 tab PO QAM 30 Days Qty: 30 RF: 0 thiamine HCl (vitamin B1) [Vitamin B-1] 100 mg Tablet 100 mg PO QAM 10 Days Qty: 10 RF: 0 folic acid 1 mg Tablet 1 mg PO QAM 10 Days Qty: 10 RF: 0 Prilosec OTC 20 mg tablet,delayed release (DR/EC) 20 mg PO DAILY Qty: 30 RF: 1 No Action No Known Home Medications RF: 0 Stand-Alone Forms: [facility] Discharge Orders: Discharge Order (Routine); Ordered 11/16/18 Ordered By: Homer Queen Admission Data Admit Date/Time: 11/12/18 20:14 Attending Provider: Homer Queen Admit Provider: Tony Benton Primary Care Provider: PCP,NO Other Providers: Tony Benton ; Elizabeth Vital Service: Telemetry Medical
[2018-11-16 15:21] VITALS: BP 129/94
[2018-11-16 15:23] LABS: Mean Corpuscular Hgb Conc 35.3 g/dL (32-36)
[2018-11-16 15:31] LABS: BUN Creatinine Ratio 9.6 (10-20); Calcium 9.2 mg/dl (8.5-10.1); Creatinine Clr Calc Pharmacy 114.8 ml/min; Est GFR (African American) 137.4; Est GFR (Non-African American) 118.6; Phosphorus 4.5 mg/dl (2.5-4.9); Potassium 3.7 mmol/L (3.5-5.1)
== END 2018-11-16 16:17 | disposition home or self-care (01) | DRG 897 ==
LOC: ED 17:27 → 2W 20:14